=== PATIENT | male | born 1935 | race Caucasian/White ===

== ENCOUNTER 2017-03-10 21:43 | Inpatient (IN) | payer MEDICARE, MEDICAID ==
[2017-03-10 21:43] VITALS: BMI 25.7
--- NOTE | 2017-03-10 22:00 | ED PDOC ---
Arrival/HPI - General Time Seen by Provider: 03/10/17 21:47 Historian: Skilled Nursing - History of Present Illness Narrative History of Present Illness (Text): 03/10/17 21:59 Erickson Lind is an 81 year old male, whose past medical history includes hypertensino, dementia, DVT, GI bleed, anemia, and anxiety, who presents to the Emergency department sent from half-way for evaluation right foot/heel discoloration recently, r/o DVT. Patient noted to be febrile on arrival to Emergency department. Limited HPI and ROS secondary to patient's dementia. Symptom Onset: Gradual Symptom Course: Unchanged Activities at Onset: Light Context: Home ([facility]) Past Medical History - Provider Review Nursing Documentation Reviewed: Yes - Past History Past History: No Previous - Infectious Disease Hx of Infectious Diseases: None - Tetanus Immunization Tetanus Immunization: Unknown - Cardiac Hx Hypertension: Yes - Pulmonary Hx Tuberculosis: No - Neurological Hx Seizures: No - Hematological/Oncological Hx Cancer: No - Gastrointestinal Hx Gastroesophageal Reflux: Yes - Genitourinary/Gynecological Hx Sexually Transmitted Diseases: No - Psychiatric Hx Depression: No Hx Substance Use: No - Past Surgical History Past Surgical History: No Previous - Anesthesia Hx Anesthesia: Yes Hx Anesthesia Reactions: No Hx Malignant Hyperthermia: No - Suicidal Assessment Feels Threatened In Home Enviroment: No Family/Social History - Physician Review Nursing Documentation Reviewed: Yes Family/Social History: Unknown Family HX Hx Alcohol Use: No Hx Substance Use: No Hx Substance Use Treatment: No Allergies/Home Meds Allergies/Adverse Reactions: Allergies No Known Allergies Allergy (Verified 01/30/13 19:34) Home Medications: Home Meds Medication Instructions Recorded Confirmed Acetaminophen [Tylenol 325mg tab] 650 mg PO Q4H PRN 03/10/17 03/10/17 Acetaminophen [Tylenol 325mg tab] 650 mg PO Q4H PRN 03/10/17 03/10/17 Ascorbic Acid [Vitamin C] 500 mg PO DAILY 03/10/17 03/10/17 Cholecalciferol (Vitamin D3) 50,000 unit PO QWK 03/10/17 03/10/17 [Vitamin D3] Divalproex [Depakote Sprinkles] 125 mg PO DAILY 03/10/17 03/10/17 Famotidine [Pepcid] 20 mg PO BID 01/12/18 01/12/18 Furosemide [Lasix] 20 mg PO DAILY 03/10/17 03/10/17 Magnesium Hydroxide [Milk Of 30 ml PO HS PRN 03/10/17 03/10/17 Magnesia] Review of Systems - Review of Systems Systems not reviewed;Unavailable: Dementia Musculoskeletal: Other (+right foot discoloration) Physical Exam Vital Signs Reviewed: Yes Vital Signs Temp Pulse Resp BP Pulse Ox 03/11/17 01:19 98.9 F 85 22 122/75 03/11/17 01:00 87 20 111/64 96 03/11/17 00:51 81 20 110/65 97 03/10/17 23:47 99.0 F 79 20 131/74 96 03/10/17 23:31 99.0 F 03/10/17 23:15 82 20 138/84 94 L 03/10/17 23:07 77 20 128/70 94 L 03/10/17 22:52 81 20 129/71 95 03/10/17 22:37 87 20 126/73 91 L 03/10/17 22:31 101.2 F H 03/10/17 22:22 90 20 128/55 L 95 03/10/17 22:00 89 L 03/10/17 21:57 101.2 F H 93 H 26 H 128/71 84 L Temperature: Febrile Blood Pressure: Normal Pulse: Regular Respiratory Rate: Normal Appearance: Positive for: Non-Toxic Pain Distress: None Mental Status: Positive for: other (Awake, non-communicative) - Systems Exam Head: Present: Atraumatic, Normocephalic Pupils: Present: PERRL Extroacular Muscles: Present: EOMI Conjunctiva: Present: Normal Mouth: Present: Moist Mucous Membranes Neck: Present: Normal Range of Motion. No: Meningeal Signs, MIDLINE TENDERNESS , Paraspinal Tenderness Respiratory/Chest: Present: Clear to Auscultation, Good Air Exchange. No: Respiratory Distress, Accessory Muscle Use Cardiovascular: Present: Regular Rate and Rhythm, Normal S1, S2. No: Murmurs Abdomen: Present: Normal Bowel Sounds. No: Tenderness, Distention, Peritoneal Signs Upper Extremity: Present: NORMAL PULSES, Neurovascularly Intact, Capillary Refill < 2s. No: Cyanosis, Edema, Normal ROM (Contractures of bilateral upper extremities), Tenderness, Swelling, Erythema Lower Extremity: Present: Other (Few scattered area of discoloration to right foot/heel). No: Edema, NORMAL PULSES (Decreased DP/PT pulses), Normal ROM ( Contractures of bilateral lower extremities), Tenderness, Swelling, Erythema Neurological: Present: CN II-XII Intact, Normal Sensory Function, Other (Awake, but non-communicative) Skin: Present: Warm, Dry, Normal Color. No: Rashes Medical Decision Making ED Course and Treatment: 03/10/17 21:59 Impression: 81 year old male sent from half-way for right foot discoloration. Plan: -- EKG -- Chest X-ray -- US Duplex Lower Extremities -- Labs, VBG, cardiac enzymes, blood cultures -- Urinalysis, urine cultures -- IV fluids, lactated ringer's -- Tylenol -- Reassess and disposition Progress Notes: Reviewed EKG, NSR at [address]-segment elevations or depressions, no T-wave inversions, normal intervals. 03/10/17 22:27 Chest X-ray reviewed, shows right lung infiltrate. 03/10/17 22:31 Labs noted, lactate: 2.5, pr febrile. Code Sepsis called. 03/10/17 23:[address] Davidson, who is aware and agrees with plan. Accepts pt in to his service. Pt will be admitted to Telemetry for hypernatremia, dehydration, pneumonia, and peripheral vascular disease. Requests Dr. Lewis and Dr. Garcia on consult. 03/11/17 02:29 US Lower Extremity showed questionable left partial DVT, right lower extremity negative for DVT. - Critical Care Critical Care Minutes: 30 minutes - Lab Interpretations Lab Results: 03/10/17 22:05 03/10/17 22:05 Lab Results 03/10/17 22:11: POC Glucose (mg/dL) 211 H 03/10/17 22:05: Sodium 171 H* D, Chloride 128 H, Potassium 3.8, Carbon Dioxide 30, Anion Gap 17, BUN 68 H, Creatinine 1.5, Est GFR ( Amer) 54, Est GFR ( Non-Af Amer) 45, Random Glucose 258 H, Calcium 9.8, Phosphorus 3.9, Magnesium 3.4 H, Total Bilirubin 0.6, AST 54, ALT 37, Alkaline Phosphatase 93, Lactate Dehydrogenase 847 H, Total Creatine Kinase 452 H, CK-MB (CK-2) 1.1, CK-MB (CK-2 ) % Cancelled, Troponin I 0.04 D, Total Protein 8.4 H, Albumin 3.3, Globulin 5.1, Albumin/Globulin Ratio 0.6 L 03/10/17 22:05: pO2 79 H, VBG pH 7.47 H, VBG pCO2 44.0, VBG HCO3 32.0 H, VBG Total CO2 33.4 H, VBG O2 Sat (Calc) 97.8 H, VBG Base Excess 7.4 H, VBG Potassium 3.9, Sodium 169.0 H*, Chloride 130.0 H, Glucose 257 H, Lactate 2.5 H, FiO2 21.0, Venous Blood Potassium 3.9 03/10/17 22:05: PT 18.3 H, INR 1.59 H, APTT 36.7 H 03/10/17 22:05: WBC 11.3 H, RBC 4.57, Hgb 13.7 L, Hct 44.3, MCV 96.9, MCH 30.0, MCHC 30.9 L, RDW 16.4 H, Plt Count 305, MPV 12.1 H, Gran % 83.7 H, Lymph % (Auto ) 14.6 L, [place] % (Auto) 1.5, Eos % (Auto) 0.0 L, Baso % (Auto) 0.2, Gran # 9.43 H, Lymph # 1.6, [place] # 0.2, Eos # 0.0, Baso # 0.02 I have reviewed the lab results: Yes - RAD Interpretation Radiology Orders: 03/10/17 22:07 CHEST PORTABLE [RAD] Stat 03/10/17 22:11 DUPLEX LOWER EXTRM VEIN BILAT [US] Stat 03/10/17 22:13 ANKLE/BRACHIAL INDICE [US] Stat Trials Manager: ED Physician - EKG Interpretation Interpreted by ED Physician: Yes Type: 12 lead EKG - Medication Orders Current Medication Orders: Collagenase (Santyl) 0 gm TOP DAILY ARIEL Stop: 03/17/17 23:00 Divalproex Sodium (Depakote Sprinkles) 125 mg PO DAILY ARIEL PRN Reason: Protocol Last Admin: 03/11/17 10:05 Dose: Not Given Non-Admin Reason: NPO Dextrose (Dextrose 5% In Water 1000 Ml) 1,000 mls @ 100 mls/hr IV .Q10H ARIEL Last Admin: 03/11/17 10:12 Dose: 100 mls/hr eMAR Start Stop Document 03/11/17 10:12 DEL (Rec: 03/11/17 10:12 [facility] [id number]) Intravenous Solution Start Date 03/11/17 Start Time 10:12 Ceftaroline Fosamil 400 mg/ (Sodium Chloride) 100 mls @ 100 mls/hr IVPB Q12 ARIEL PRN Reason: Protocol Stop: 03/20/17 12:31 Last Admin: 03/11/17 14:08 Dose: 100 mls/hr eMAR Start Stop Document 03/11/17 14:08 DEL (Rec: 03/11/17 14:09 [id number] Intravenous Solution Start Date 03/11/17 Start Time 14:08 End Date 03/11/17 End time 15:00 Total Infusion Time 52 Insulin Human Regular (Humulin R High) 0 units SC ACHS ARIEL PRN Reason: Protocol Last Admin: 03/11/17 17:18 Dose: Not Given Non-Admin Reason: Blood Sugar Parameter [facility] Blood Glucose Document 03/11/17 17:18 DEL (Rec: 03/11/17 17:18 [facility] [id number]) Blood Glucose Finger Stick Blood Glucose (70-120) 130 Discontinued Medications Acetaminophen (Tylenol 650 Mg Supp) 650 mg RC STAT STA Stop: 03/10/17 22:14 Last Admin: 03/10/17 22:31 Dose: 650 mg MAR Pain/Vitals Document 03/10/17 22:31 JOL (Rec: 03/10/17 22:31 JOL [id number]) Vitals Temperature (97.6 F-99.6 F) 101.2 F Temperature Source Rectal Re-Assess: MAR Pain/Vitals Document 03/10/17 23:31 JOL (Rec: 03/11/17 00:49 JOL [id number]) Vitals Temperature (97.6 F-99.6 F) 99.0 F Temperature Source Rectal Sodium Chloride (Sodium Chloride 0.9%) 1,000 mls @ 999 mls/hr IV .Q1H1M STA Stop: 03/10/17 23:12 Last Admin: 03/10/17 22:31 Dose: 999 mls/hr eMAR Start Stop Document 03/10/17 22:31 JOL (Rec: 03/10/17 22:31 JOL [id number]) Intravenous Solution Start Date 03/10/17 Start Time 22:31 End Date 03/10/17 End time 23:32 Total Infusion Time 61 Levofloxacin/Dextrose (Levaquin 750mg) 750 mg in 150 mls @ 100 mls/hr IVPB STAT STA PRN Reason: Protocol Stop: 03/11/17 00:01 Last Admin: 03/11/17 00:00 Dose: 100 mls/hr eMAR Start Stop Document 03/11/17 00:00 JOL (Rec: 03/11/17 00:00 JOL [id number]) Intravenous Solution Start Date 03/11/17 Start Time 00:00 End Date 03/11/17 End time 01:30 Total Infusion Time 90 Cefepime HCl (Maxipime 2gm) 2 gm in 100 mls @ 100 mls/hr IVPB STAT STA PRN Reason: Protocol Stop: 03/10/17 23:31 Last Admin: 03/10/17 23:01 Dose: 100 mls/hr eMAR Start Stop Document 03/10/17 23:01 JOL (Rec: 03/10/17 23:02 JOL [id number]) Intravenous Solution Start Date 03/10/17 Start Time 23:01 End Date 03/11/17 End time 00:01 Total Infusion Time 60 Cefepime HCl (Maxipime 1gm) 1 gm in 100 mls @ 100 mls/hr IVPB Q12 ARIEL PRN Reason: Protocol Last Admin: 03/11/17 10:08 Dose: 100 mls/hr eMAR Start Stop Document 03/11/17 10:08 DEL (Rec: 03/11/17 10:08 DEL [id number]) Intravenous Solution Start Date 03/11/17 Start Time 10:08 End Date 03/11/17 End time 11:10 Total Infusion Time 62 - Scribe Statement The provider has reviewed the documentation as recorded by the Pazibcecilia Travis All medical record entries made by the Scribe were at my direction and personally dictated by me. I have reviewed the chart and agree that the record accurately reflects my personal performance of the history, physical exam, medical decision making, and the department course for this patient. I have also personally directed, reviewed, and agree with the discharge instructions and disposition. Disposition/Present on Arrival - Present on Arrival Any Indicators Present on Arrival: No History of DVT/PE: No History of Uncontrolled Diabetes: No Urinary Catheter: No History Surgical Site Infection Following: None - Disposition Have Diagnosis and Disposition been Completed?: Yes Diagnosis: Dehydration with hypernatremia, Pneumonia, Sepsis Disposition: HOSPITALIZED Disposition Time: 23:24 Patient Problems: Current Active Problems Problem Status Onset Dehydration with hypernatremia Acute Pneumonia Acute Sepsis Acute Condition: STABLE
[2017-03-10] MEDS ORDERED: Sodium Chloride 0.9% 1,000 ML IV STA (22:12)
[2017-03-10 22:24] LABS: VENOUS BLOOD GAS BASE EXCESS 7.4 mmol/L (0.0-2.0); VENOUS BLOOD GAS PO2 79 mm/Hg (30-55); VENOUS BLOOD PH 7.47 (7.32-7.43)
[2017-03-10] MEDS ORDERED: levoFLOXacin 750 mg in D5W 750 MG/150 ML BAG IVPB STA (22:32)
[2017-03-10] MEDS ORDERED: Cefepime IV 2 gm in NS 2 GM/100 ML BAG IVPB STA (22:32)
[2017-03-10] MEDS ORDERED: Sodium Chloride 0.9% 500 ML IV STA (22:39)
[2017-03-10 22:41] LABS: BASO # 0.02 K/mm3 (0.0-2.0); BASO % 0.2 % (0.0-3.0); GRAN # 9.43 (1.4-6.5); GRAN % 83.7 % (50.0-68.0); HEMOGLOBIN 13.7 g/dL (14.0-18.0); LYMPH # 1.6 (1.2-3.4); LYMPH % 14.6 % (22.0-35.0); MEAN CELL VOLUME 96.9 fl (80.0-105.0); MEAN CORPUSCULAR HGB CONC 30.9 g/dl (31.0-37.0); MEAN PLATELET VOLUME 12.1 fl (7.0-11.0); MONO # 0.2 (0.1-0.6); MONO % 1.5 % (1.0-6.0); RBC 4.57 10^6/uL (3.5-6.1); RED CELL DISTRIBUTION WIDTH 16.4 % (11.5-14.5); TROPONIN I 0.04 ng/mL; WHITE BLOOD COUNT 11.3 10^3/ul (4.5-11.0)
[2017-03-10 22:44] LABS: ALB/GLOB RATIO 0.6 (1.1-1.8); ALBUMIN 3.3 g/dL (3.0-4.8); CALCIUM 9.8 mg/dL (8.4-10.5); MAGNESIUM 3.4 mg/dL (1.7-2.2)
[2017-03-10 22:46] LABS: CK-MB 1.1 ng/mL (0.0-3.6)
[2017-03-10 22:50] LABS: INR 1.59 (0.93-1.08); PARTIAL THROMBOPLASTIN TIME 36.7 Seconds (25.1-36.5); PROTHROMBIN TIME 18.3 SECONDS (9.4-12.5)
[2017-03-11 01:14] LABS: VENOUS BLOOD GAS BASE EXCESS 4.3 mmol/L (0.0-2.0); VENOUS BLOOD GAS PO2 165 mm/Hg (30-55); VENOUS BLOOD PH 7.52 (7.32-7.43)
[2017-03-11] MEDS ORDERED: Enoxaparin 60 mg Syringe SC STA (02:34)
--- NOTE | 2017-03-11 02:44 | PCM.SEPTIC ---
Sepsis Progress Note - Reassessment Type Date of Evaluation: 03/11/17 Time of Evaluation: 02:28 Reassessment Type: Non-invasive reassessment - Non Invasive Reassessment Were the most recent vital sign reviewed: Yes Vital Sign (Latest): Temp Pulse Resp BP Pulse Ox 98.9 F 85 22 122/75 94 L 03/11/17 02:00 03/11/17 02:00 03/11/17 02:00 03/11/17 02:00 03/11/17 02:00 Cardiovascular: Yes: Regular Rate, Rhythm. No: Bradycardia, Tachycardia, Irregularly Irregular Respiratory: Yes: Decreased Breath Sounds (diffusely), Other (tachypnic to 22, getting breathing treatment at time of exam). No: Crackles, Rales, Rhonchi, Wheezing Capillary Refill: Normal (Less than 2 sec) Pulses: Normal Radial, Decreased Dorsalis Pedis, Absent Posterior Tibialis Skin: Normal Color, Warm, Dry
[2017-03-11] MEDS: Insulin Reg-HIGH-Coverage SC SCH ×3 (08:36→17:18)
--- NOTE | 2017-03-11 08:43 | RAD ---
HISTORY: Sepsis Patient COMPARISON: 02/20/2013 FINDINGS: LUNGS: There is a small infiltrate at the right lung base which may represent atelectasis or pneumonia. PLEURA: No significant pleural effusion identified, no pneumothorax apparent. CARDIOVASCULAR: Normal. OSSEOUS STRUCTURES: No significant abnormalities. VISUALIZED UPPER ABDOMEN: Normal. OTHER FINDINGS: None. IMPRESSION: There is a small infiltrate at the right lung base which may represent atelectasis or pneumonia.
[2017-03-11] MEDS ORDERED: Cefepime 1gm in NS 100ml 1 GM/100 ML BAG IVPB SCH (10:00)
[2017-03-11] MEDS: Divalproex 125 mg EC Sprinkle Cap PO SCH (10:05)
--- NOTE | 2017-03-11 11:10 | HP ---
HISTORY OF PRESENT ILLNESS: I was called by [facility] that he has got some vascular changes in his foot and he is not as alert mentally and they sent him to the Emergency Room at [facility]. He is an 81-year-old man who is bedridden. PAST MEDICAL HISTORY: Includes hypertension, dementia, old DVT, GI bleed, anemia, anxiety. He has a right foot heel discoloration. He is also having a fever. He has history of dementia and he is sent to the emergency room. He has reflux. FAMILY HISTORY: Unknown family history. SOCIAL HISTORY: No alcohol. No drugs. No smoking. ALLERGIES: NO KNOWN DRUG ALLERGIES. MEDICATIONS: He takes Tylenol, vitamin C, vitamin D, Depakote, Pepcid, Lasix, milk of magnesia. REVIEW OF SYSTEMS: Cannot do review of systems. PHYSICAL EXAMINATION GENERAL: He is nonverbal, demented. His eyes are open, I am not sure if he is toxic. He is awake, but not communicative. VITAL SIGNS: He has 101.2 temp, 93 pulse, 26 respiratory rate, 120/71 blood pressure, 84 which came up to 96% O2 sat. HEENT: Normocephalic, atraumatic. Extraocular muscles are intact. Throat is dry. NECK: Supple. HEART: Regular rate, normal S1 and S2. LUNGS: Decreased breath sounds. Poor inspiration but fairly clear. ABDOMEN: Soft and nontender. Positive bowel sounds. No apparent guarding. EXTREMITIES: His extremities are contracted, upper and lower extremities bilaterally. No apparent edema. He has discoloration of the right foot and heel, it is kind of reddened. NEUROLOGIC: His eyes are open. SKIN: Warm and dry. There is still right foot heel issue. Multiple tests are ordered from ER doctors ankle-brachial index, ultrasound, chest x-ray that are pending. LABORATORY DATA: He has a 11.3 white count, 13.7 hemoglobin, 44.3 hematocrit with a 305 platelets. His INR is 1.59, not on Coumadin. Lactate was 2.5. He has 171 sodium, potassium 3.8, BUN 68, creatinine 1.5, sugars are 211, calcium is 9.8, phosphorus 3.9, magnesium 3.4, AST is 54, ALT is 37, alkaline phosphatase 93, lactate dehydrogenase is 847. Troponin is 0.04. Total protein is 8.4. PLAN: He is to have multiple consults. We are going to have Vascular, Infectious Disease, Podiatry, Renal, IV fluids, IV antibiotics. We are going to watch him very closely. Gerry Davidson DO
[2017-03-11 13:07] LABS: BLOOD UREA NITROGEN 60 mg/dL (7-21); CALCIUM 8.8 mg/dL (8.4-10.5); GFR AFRICAN-AMERICAN > 60; GFR NON-AFRICAN AMERICAN 58
--- NOTE | 2017-03-11 13:20 | RAD ---
PROCEDURE: Right Foot Radiographs. HISTORY: right heel ulcer COMPARISON: None. FINDINGS: BONES: Normal. No fracture. JOINTS: Normal. SOFT TISSUES: Normal. OTHER FINDINGS: None. IMPRESSION: Normal right foot radiographs.
--- NOTE | 2017-03-11 15:35 | CARD ---
APPROVED REPORT EXAM: Two-dimensional and M-mode echocardiogram with Doppler and color Doppler. INDICATION r/o Endocarditis <Conclusion> 2 subcostal views with a very limited window Overall systolic function is preserved Impossible to evaluate for the presence of a vegitation
--- NOTE | 2017-03-11 15:40 | CARD ---
APPROVED REPORT EKG Measurement Heart [id number] <Conclusion> Normal sinus rhythm Normal ECG
[2017-03-11 20:07] LABS: PH,URINE 5.5 (4.7-8.0); URINE BILIRUBIN NEGATIVE (NEGATIVE); URINE BLOOD SMALL (NEGATIVE); URINE GLUCOSE (UA) NEGATIVE (NEGATIVE); URINE LEUKOCYTE ESTERASE NEGATIVE Leu/uL (NEGATIVE); URINE NITRATE NEGATIVE (NEGATIVE); URINE PROTEIN 100 mg/dL (<30 mg/dL); URINE UROBILINOGEN 0.2 E.U./dL (<1 E.U./dL)
[2017-03-11 20:14] LABS: URINE APPEARANCE CLOUDY (CLEAR); URINE COLOR YELLOW (YELLOW)
[2017-03-11 20:23] LABS: URINE BACTERIA FEW (NEG); URINE WBC 0 - 2 /hpf (0-6)
[2017-03-11 20:50] LABS: CREATININE,RANDOM URINE 126 mg/dL
--- NOTE | 2017-03-11 22:23 | CP.PCM.CON ---
History of Present Illness - History of Present Illness History of Present Illness: renal consult note 81 years old with past medical history includes hypertension, dementia, DVT, GI bleed, anemia, and anxiety, is admitted with foot discoloration, AMS and fever. i have been consulted for hypernatremia. patient unable to provide any hx Review of Systems - Review of Systems Systems not reviewed;Unavailable: Dementia, Altered Mental Status Past Patient History - Infectious Disease Hx of Infectious Diseases: None - Tetanus Immunizations Tetanus Immunization: Unknown - Past Social History Smoking Status: Unknown If Ever Smoked - CARDIAC Hx Hypertension: Yes - PULMONARY Hx Tuberculosis: No - NEUROLOGICAL Hx Seizures: No - HEMATOLOGICAL/ONCOLOGICAL Hx Cancer: No - MUSCULOSKELETAL/RHEUMATOLOGICAL Hx Musculoskeletal Disorders: Yes Hx Degenerative Joint Disease: Yes Hx Falls: (unknown) - GASTROINTESTINAL Hx Gastroesophageal Reflux: Yes - GENITOURINARY/GYNECOLOGICAL Hx Sexually Transmitted Disorders: No - PSYCHIATRIC Hx Depression: No Hx Substance Use: No - ANESTHESIA Hx Anesthesia: Yes Hx Anesthesia Reactions: No Hx Malignant Hyperthermia: No Meds Allergies/Adverse Reactions: Allergies Allergy/AdvReac Type Severity Reaction Status Date / Time No Known Allergies Allergy Verified 01/30/13 19:34 - Medications Medications: Current Medications Collagenase (Santyl) 0 gm TOP DAILY ARIEL Stop: 03/17/17 23:00 Divalproex Sodium (Depakote Sprinkles) 125 mg PO DAILY ARIEL PRN Reason: Protocol Last Admin: 03/11/17 10:05 Dose: Not Given Dextrose (Dextrose 5% In Water 1000 Ml) 1,000 mls @ 100 mls/hr IV .Q10H [facility] Last Admin: 03/11/17 10:12 Dose: 100 mls/hr Ceftaroline Fosamil 400 mg/ (Sodium Chloride) 100 mls @ 100 mls/hr IVPB Q12 ARIEL PRN Reason: Protocol Stop: 03/20/17 12:31 Last Admin: 03/11/17 14:08 Dose: 100 mls/hr Insulin Human Regular (Humulin R High) 0 units SC ACHS ARIEL PRN Reason: Protocol Last Admin: 03/11/17 17:18 Dose: Not Given Physical Exam - Constitutional Appears: Non-toxic, Confused - Head Exam Head Exam: NORMAL INSPECTION - Eye Exam Eye Exam: Normal appearance - ENT Exam ENT Exam: Mucous Membranes Dry - Respiratory Exam Respiratory Exam: NORMAL BREATHING PATTERN - Cardiovascular Exam Cardiovascular Exam: +S1, +S2 - GI/Abdominal Exam GI & Abdominal Exam: Soft - Extremities Exam Extremities exam: Positive for: normal inspection - Neurological Exam Additional comments: AO times 0 - Skin Skin Exam: Dry Results - Vital Signs Recent Vital Signs: Last Vital Signs Temp 97.6 F 03/11/17 17:52 Pulse 76 03/11/17 18:00 Resp 21 03/11/17 17:52 BP 125/77 03/11/17 17:52 Pulse Ox 96 03/11/17 17:52 - Labs Result Diagrams: 03/10/17 22:05 03/11/17 12:44 Labs: Laboratory Results - last 24 hr 03/11/17 03/11/17 03/11/17 01:05 08:25 11:50 ESR pO2 165 H VBG pH 7.52 H VBG pCO2 33.0 L VBG HCO3 26.9 VBG Total CO2 27.9 VBG O2 Sat (Calc) 99.9 H VBG Base Excess 4.3 H VBG Potassium 4.5 Sodium 167.0 H* Chloride 131.0 H Glucose 223 H Lactate 2.2 H FiO2 21.0 Potassium Carbon Dioxide Anion Gap BUN Creatinine Est GFR ( Amer) Est GFR (Non-Af Amer) POC Glucose (mg/dL) 194 H 174 H Random Glucose Calcium C-React Prot High Sens Procalcitonin Venous Blood Potassium 4.5 Urine Color Urine Appearance Urine pH Ur Specific [place] Urine Protein Urine Glucose (UA) Urine Ketones Urine Blood Urine Nitrate Urine Bilirubin Urine Urobilinogen Ur Leukocyte Esterase Urine RBC Urine WBC Ur Epithelial Cells Urine Bacteria Ur Random Creatinine Ur Random Sodium 03/11/17 03/11/17 03/11/17 12:44 13:50 13:50 ESR pO2 VBG pH VBG pCO2 VBG HCO3 VBG Total CO2 VBG O2 Sat (Calc) VBG Base Excess VBG Potassium Sodium 166 H* Chloride 128 H Glucose Lactate FiO2 Potassium 3.7 Carbon Dioxide 28 Anion Gap 13 BUN 60 H Creatinine 1.2 Est GFR ( Amer) > 60 Est GFR (Non-Af Amer) 58 POC Glucose (mg/dL) Random Glucose 208 H Calcium 8.8 C-React Prot High Sens > 15.00 H Procalcitonin 1.13 H Venous Blood Potassium Urine Color Urine Appearance Urine pH Ur Specific [place] Urine Protein Urine Glucose (UA) Urine Ketones Urine Blood Urine Nitrate Urine Bilirubin Urine Urobilinogen Ur Leukocyte Esterase Urine RBC Urine WBC Ur Epithelial Cells Urine Bacteria Ur Random Creatinine Ur Random Sodium 03/11/17 03/11/17 03/11/17 13:50 16:40 19:00 ESR 121 H pO2 VBG pH VBG pCO2 VBG HCO3 VBG Total CO2 VBG O2 Sat (Calc) VBG Base Excess VBG Potassium Sodium Chloride Glucose Lactate FiO2 Potassium Carbon Dioxide Anion Gap BUN Creatinine Est GFR ( Amer) Est GFR (Non-Af Amer) POC Glucose (mg/dL) 130 H Random Glucose Calcium C-React Prot High Sens Procalcitonin Venous Blood Potassium Urine Color Yellow Urine Appearance Cloudy Urine pH 5.5 Ur Specific [place] >= 1.030 Urine Protein 100 H Urine Glucose (UA) Negative Urine Ketones Negative Urine Blood Small H Urine Nitrate Negative Urine Bilirubin Negative Urine Urobilinogen 0.2 Ur Leukocyte Esterase Negative Urine RBC 1 - 3 Urine WBC 0 - 2 Ur Epithelial Cells 1 - 3 Urine Bacteria Few Ur Random Creatinine Ur Random Sodium 03/11/17 03/11/17 19:00 21:30 ESR pO2 VBG pH VBG pCO2 VBG HCO3 VBG Total CO2 VBG O2 Sat (Calc) VBG Base Excess VBG Potassium Sodium Chloride Glucose Lactate FiO2 Potassium Carbon Dioxide Anion Gap BUN Creatinine Est GFR ( Amer) Est GFR (Non-Af Amer) POC Glucose (mg/dL) 177 H Random Glucose Calcium C-React Prot High Sens Procalcitonin Venous Blood Potassium Urine Color Urine Appearance Urine pH Ur Specific [place] Urine Protein Urine Glucose (UA) Urine Ketones Urine Blood Urine Nitrate Urine Bilirubin Urine Urobilinogen Ur Leukocyte Esterase Urine RBC Urine WBC Ur Epithelial Cells Urine Bacteria Ur Random Creatinine 126 Ur Random Sodium 15 Assessment & Plan - Assessment and Plan (Free Text) Plan: hypernatremia/dehydration/dementia/htn hypernatremia sec to oral intake, decreased free water intake continue d5 water @ current rate i ordered another bmp to be checked in afternoon, which showed sodium of 166 montior UOP d/w bedside nurse
--- NOTE | 2017-03-12 00:18 | CON ---
DATE: 03/11/2017 The patient seen earlier today in 372, bed 1. CHIEF COMPLAINT: Weakness times several days. HISTORY OF PRESENT ILLNESS: This is an 81-year-old male, correction patient, who is bedridden with a history of dementia, DVT, GI bleed, anxiety, contracted pes equinus who was admitted with a right foot erythema. The patient is a poor historian. Information is gathered from the nurse. The patient did have a fever as reported. No chills have been reported. There is very mild shortness of breath. No abdominal pain or diarrhea. PAST MEDICAL HISTORY: Significant for dementia, DVT, GI bleed, anxiety, hypertension, and Alzheimer's. PAST SURGICAL HISTORY: Noncontributory. MEDICATIONS AT RETIREMENT: Include magnesium, Tylenol, vitamins, furosemide, ascorbic acid, famotidine, divalproex which is Depakote. PHYSICAL EXAMINATION: GENERAL: The patient is in bed, in no acute distress. VITAL SIGNS: Temperature of 101.2, heart rate of 98, respiratory rate 22, blood pressure is 120/70, oxygen saturation is 94%. It was down to 84% in the emergency room. HEENT: Unremarkable. NECK: Supple. LUNGS: Have decreased breath sounds. HEART: Normal S1, S2. ABDOMEN: Soft, nontender. EXTREMITIES: On examination of the right foot, there is erythema and edema of the foot. Laboratory examination reveals a white count of 11,000, hemoglobin of 13, platelets of 305. Sodium is 171, BUN of 68, creatinine of 1.5 with a GFR of 45. LDH is elevated. CPK is elevated. ASSESSMENT/PLAN: An 81-year-old male with dementia, deep venous thrombosis, gastrointestinal bleed, anxiety, hypertension, bedridden, contracted with severe sepsis secondary to severe right foot cellulitis with gangrenous changes with acute kidney injury. Creatinine on last admission on 10/30/2013 was 0.7. Yesterday, the patient's creatinine was 1.5. Blood cultures have been sent. Dr. Lewis is on consult. The patient was given cefepime. The patient had a chest x-ray. There is a small injury to the right lung base, maybe atelectasis or pneumonia. The patient had EKG. Results are not available. The patient had an ultrasound of lower extremities and ankle brachial indices. Both results are not available. Sepsis progress note by Dr. Gerry Davidson is noted. He will start the patient on Teflaro adjusted for the acute kidney injury, unable to use vancomycin. Must rule out bacteremia and cellulitis and endocarditis. The patient has an elevated CPK and rhabdomyolysis with acute kidney injury. Hesitant to use daptomycin and unable to use Zyvox because of possibility of bacteremia, pending blood cultures, urine cultures, and podiatric input. Also order an echocardiogram to rule out endocarditis with an embolic disease to the right foot. Pending blood cultures and also order a sed rate and a C-reactive protein. We will make further recommendations upon availability of initial results. We will discontinue the cefepime. Todd Garcia MD
--- NOTE | 2017-03-12 00:49 | CON ---
DATE: 03/11/2017 HISTORY OF PRESENT ILLNESS: An 81-year-old intubated male seen at bedside for consultation, evaluation and management of a right heel ulceration and severe discoloration to the right foot. The patient is intubated and is unable to answer any questions. The patient was brought from assisted yesterday. PAST MEDICAL HISTORY: Significant for essential hypertension, peripheral arterial disease, and dementia. PAST SURGICAL HISTORY: Unobtainable. SOCIAL HISTORY: Unknown. There is no evidence of alcohol or substance abuse, and there is no record of tobacco usage. ALLERGIES: THE PATIENT HAS NO KNOWN DRUG ALLERGIES. VITAL SIGNS: Reveal temperature of 99.1, pulse rate of 87, blood pressure of 119/86, respiratory rate of 19. LABORATORY FINDINGS: Reveal white count of 11.3, hemoglobin of 13.7, hematocrit of 44.3, platelet count of 305. ABIs and PVRs were ordered, results are pending. Venous Doppler was taken, results are pending to rule out deep vein thrombosis. No x-rays were ordered. OBJECTIVE: Weakly palpable pedal pulses noted bilaterally. Absent pedal hair growth noted bilaterally. Lower extremity skin thin, shining, discolored bilaterally. Unable to determine if the patient can detect 5.07 g monofilament testing as the patient is nonresponsive. There is a full-thickness ulceration located at the right heel that measures approximately 1.2 cm x 1 cm x 0.2 cm. The base of the ulceration is gangrenous. It appears to have demarcated. There is no purulence. The wound does not probe the tendon or bone. No signs of acute bacterial infection. There are noted to be discolorations from deep tissue injuries on the lateral aspect of the right foot and distal ankle laterally. There are no open lesions noted at these areas. ASSESSMENT: Gangrenous right heel ulceration with deep tissue injuries to the lateral aspect of the right foot. PLAN: The patient's wounds were cleansed with normal sterile saline. We will apply Santyl ointment to the right heel and dress the deep tissue injuries with Xeroform and dry sterile dressing. We will order arterial Dopplers to ascertain lower extremity perfusion. We will order right foot x-rays to rule out osteomyelitis of the right calcaneus. We will await PVR, DU report, as well as venous Dopplers. It is imperative that we continue to offload both heels using a foam Multi-Podus boots and are present at bedside. The patient will be seen and followed daily. Amrit Valencia DPM
[2017-03-12] MEDS: Insulin Reg-HIGH-Coverage SC SCH ×5 (05:55→22:00)
[2017-03-12 07:56] LABS: HEMOGLOBIN 12.2 g/dL (14.0-18.0); MEAN CELL VOLUME 98.6 fl (80.0-105.0); MEAN CORPUSCULAR HEMOGLOBIN 29.5 pg (25.0-35.0); MEAN CORPUSCULAR HGB CONC 29.9 g/dl (31.0-37.0); MEAN PLATELET VOLUME 12.8 fl (7.0-11.0); RBC 4.14 10^6/uL (3.5-6.1); RED CELL DISTRIBUTION WIDTH 16.6 % (11.5-14.5); WHITE BLOOD COUNT 11.5 10^3/ul (4.5-11.0)
[2017-03-12 08:23] LABS: ALB/GLOB RATIO 0.6 (1.1-1.8); ALBUMIN 3.2 g/dL (3.0-4.8); ALT/SGPT 39 U/L (7-56); AST/SGOT 48 U/L (17-59); BLOOD UREA NITROGEN 54 mg/dL (7-21); GFR AFRICAN-AMERICAN > 60; GFR NON-AFRICAN AMERICAN > 60
[2017-03-12] MEDS: Collagenase 250 Units/gm Ointment(30 gm) TOP SCH (09:10)
[2017-03-12] MEDS: Divalproex 125 mg EC Sprinkle Cap PO SCH (09:11)
[2017-03-12] MEDS: Enoxaparin 40 mg Syringe SC SCH (13:31)
--- NOTE | 2017-03-12 17:46 | CP.PCM.PN ---
Subjective - Date & Time of Evaluation Date of Evaluation: 03/12/17 Time of Evaluation: 17:46 - Subjective Subjective: renal follow up note no events overnight PE: lying in bed vitals reviewed s1s2 present coarse bs + abd soft skin dry ao times 0 no edema plan: hypernatremia/dehydration/dementia/htn hypernatremia sec to oral intake, decreased free water intake continue d5 water @ current rate, sodium is slowly improving free water does not cause volume overload, can continue at same rate monitor UOP Objective - Vital Signs/Intake and Output Vital Signs (last 24 hours): Temp Pulse Resp BP Pulse Ox 102.4 F H 92 H 18 129/81 93 L 03/12/17 15:34 03/12/17 06:00 03/12/17 06:00 03/12/17 06:00 03/12/17 06:00 Intake and Output: 03/12/17 03/12/17 06:59 18:59 Intake Total 1200 Balance 1200 - Medications Medications: Current Medications Acetaminophen (Tylenol 650 Mg Supp) 650 mg RC Q4H PRN PRN Reason: Fever >100.4 F Last Admin: 03/12/17 15:34 Dose: 650 mg Collagenase (Santyl) 0 gm TOP DAILY ARIEL Stop: 03/17/17 23:00 Last Admin: 03/12/17 09:10 Dose: 1 apful Divalproex Sodium (Depakote Sprinkles) 125 mg PO DAILY ARIEL PRN Reason: Protocol Last Admin: 03/12/17 09:11 Dose: 125 mg Enoxaparin Sodium (Lovenox) 40 mg SC DAILY ARIEL PRN Reason: Protocol Last Admin: 03/12/17 13:31 Dose: 40 mg Dextrose (Dextrose 5% In Water 1000 Ml) 1,000 mls @ 100 mls/hr IV .Q10H ARIEL Last Admin: 03/12/17 12:35 Dose: Not Given Ceftaroline Fosamil 400 mg/ (Sodium Chloride) 100 mls @ 100 mls/hr IVPB Q12 ARIEL PRN Reason: Protocol Stop: 03/20/17 12:31 Last Admin: 03/12/17 09:10 Dose: 100 mls/hr Insulin Human Regular (Humulin R High) 0 units SC ACHS ARIEL PRN Reason: Protocol Last Admin: 03/12/17 17:12 Dose: 2 units - Labs Labs: 03/12/17 06:30 03/12/17 06:30 PT 18.3 SECONDS (9.4-12.5) H 03/10/17 22:05 INR 1.59 (0.93-1.08) H 03/10/17 22:05 APTT 36.7 Seconds (25.1-36.5) H 03/10/17 22:05
--- NOTE | 2017-03-12 23:21 | CP.PCM.PN ---
Subjective - Date & Time of Evaluation Date of Evaluation: 03/12/17 Time of Evaluation: 23:18 - Subjective Subjective: Patient was seen because nurse states that his pulse ox was low (88%) on 2L/min by nasal canula and she has patient on 100 % non rebreathing mask. Patient has no complaints. Medical record was reviewed. This 81 year old white male was admitted with altered mental state and vascular changes, right lung base infiltrate. Has PMH of HTN,dementia, DVT, anxiety, anemia, GI bleeding, GERD. Objective - Vital Signs/Intake and Output Vital Signs (last 24 hours): Temp Pulse Resp BP Pulse Ox 102.6 F H 94 H 20 134/81 92 L 03/12/17 21:30 03/12/17 18:00 03/12/17 18:00 03/12/17 18:00 03/12/17 18:00 Intake and Output: 03/12/17 03/13/17 18:59 06:59 Intake Total 120 Balance 120 - Medications Medications: Current Medications Acetaminophen (Tylenol 650 Mg Supp) 650 mg RC Q4H PRN PRN Reason: Fever >100.4 F Last Admin: 03/12/17 21:30 Dose: 650 mg Collagenase (Santyl) 0 gm TOP DAILY ARIEL Stop: 03/17/17 23:00 Last Admin: 03/12/17 09:10 Dose: 1 apful Divalproex Sodium (Depakote Sprinkles) 125 mg PO DAILY ARIEL PRN Reason: Protocol Last Admin: 03/12/17 09:11 Dose: 125 mg Enoxaparin Sodium (Lovenox) 40 mg SC DAILY ARIEL PRN Reason: Protocol Last Admin: 03/12/17 13:31 Dose: 40 mg Dextrose (Dextrose 5% In Water 1000 Ml) 1,000 mls @ 100 mls/hr IV .Q10H ARIEL Last Admin: 03/12/17 19:02 Dose: Not Given Ceftaroline Fosamil 400 mg/ (Sodium Chloride) 100 mls @ 100 mls/hr IVPB Q12 ARIEL PRN Reason: Protocol Stop: 03/20/17 12:31 Last Admin: 03/12/17 21:30 Dose: 100 mls/hr Insulin Human Regular (Humulin R High) 0 units SC ACHS ARIEL PRN Reason: Protocol Last Admin: 03/12/17 17:12 Dose: 2 units - Labs Labs: 03/12/17 06:30 03/12/17 06:30 PT 18.3 SECONDS (9.4-12.5) H 03/10/17 22:05 INR 1.59 (0.93-1.08) H 03/10/17 22:05 APTT 36.7 Seconds (25.1-36.5) H 03/10/17 22:05 Micro Results 03/10/17 22:35 Blood Blood Culture - Preliminary NO GROWTH AFTER 48 HOURS 03/10/17 22:05 Blood Blood Culture - Preliminary NO GROWTH AFTER 48 HOURS Most Recent Lab Values WBC 11.5 10^3/ul (4.5-11.0) H 03/12/17 06:30 RBC 4.14 10^6/uL (3.5-6.1) 03/12/17 06:30 Hgb 12.2 g/dL (14.0-18.0) L 03/12/17 06:30 Hct 40.8 % (42.0-52.0) L 03/12/17 06:30 MCV 98.6 fl (80.0-105.0) 03/12/17 06:30 MCH 29.5 pg (25.0-35.0) 03/12/17 06:30 MCHC 29.9 g/dl (31.0-37.0) L 03/12/17 06:30 RDW 16.6 % (11.5-14.5) H 03/12/17 06:30 Plt Count 293 10^3/uL (120.0-450.0) 03/12/17 06:30 MPV 12.8 fl (7.0-11.0) H 03/12/17 06:30 Gran % 83.7 % (50.0-68.0) H 03/10/17 22:05 Lymph % (Auto) 14.6 % (22.0-35.0) L 03/10/17 22:05 [place] % (Auto) 1.5 % (1.0-6.0) 03/10/17 22:05 Eos % (Auto) 0.0 % (1.5-5.0) L 03/10/17 22:05 Baso % (Auto) 0.2 % (0.0-3.0) 03/10/17 22:05 Gran # 9.43 (1.4-6.5) H 03/10/17 22:05 Lymph # 1.6 (1.2-3.4) 03/10/17 22:05 [place] # 0.2 (0.1-0.6) 03/10/17 22:05 Eos # 0.0 (0.0-0.7) 03/10/17 22:05 Baso # 0.02 K/mm3 (0.0-2.0) 03/10/17 22:05 ESR 121 mm/hr (0.00-15.0) H 03/11/17 13:50 PT 18.3 SECONDS (9.4-12.5) H 03/10/17 22:05 INR 1.59 (0.93-1.08) H 03/10/17 22:05 APTT 36.7 Seconds (25.1-36.5) H 03/10/17 22:05 pO2 165 mm/Hg (30-55) H 03/11/17 01:05 VBG pH 7.52 (7.32-7.43) H 03/11/17 01:05 VBG pCO2 33.0 (40-60) L 03/11/17 01:05 VBG HCO3 26.9 mmol/l (21-28) 03/11/17 01:05 VBG Total CO2 27.9 mmol.L (22-28) 03/11/17 01:05 VBG O2 Sat (Calc) 99.9 % (40-65) H 03/11/17 01:05 VBG Base Excess 4.3 mmol/L (0.0-2.0) H 03/11/17 01:05 VBG Potassium 4.5 mmol/L (3.6-5.2) 03/11/17 01:05 Sodium 167.0 mmol/L (132-148) H* 03/11/17 01:05 Chloride 131.0 mmol/L (98-107) H 03/11/17 01:05 Glucose 223 mg/dl (75-110) H 03/11/17 01:05 Lactate 2.2 mmol/L (0.7-2.1) H 03/11/17 01:05 FiO2 21.0 % 03/11/17 01:05 Sodium 165 mmol/L (132-148) H* 03/12/17 06:30 Potassium 3.8 mmol/L (3.6-5.0) 03/12/17 06:30 Chloride 127 mmol/L (98-107) H 03/12/17 06:30 Carbon Dioxide 27 mmol/L (21-33) 03/12/17 06:30 Anion Gap 15 (10-20) 03/12/17 06:30 BUN 54 mg/dL (7-21) H 03/12/17 06:30 Creatinine 1.1 mg/dl (0.8-1.5) 03/12/17 06:30 Est GFR ( Amer) > 60 03/12/17 06:30 Est GFR (Non-Af Amer) > 60 03/12/17 06:30 POC Glucose (mg/dL) 119 mg/dL (65-110) H 03/12/17 21:14 Random Glucose 237 mg/dL (70-110) H 03/12/17 06:30 Calcium 9.0 mg/dL (8.4-10.5) 03/12/17 06:30 Phosphorus 3.9 mg/dL (2.5-4.5) 03/10/17 22:05 Magnesium 3.4 mg/dL (1.7-2.2) H 03/10/17 22:05 Total Bilirubin 0.7 mg/dL (0.2-1.3) 03/12/17 06:30 AST 48 U/L (17-59) 03/12/17 06:30 ALT 39 U/L (7-56) 03/12/17 06:30 Alkaline Phosphatase 108 U/L (38-126) 03/12/17 06:30 Lactate Dehydrogenase 847 U/L (333-699) H 03/10/17 22:05 Total Creatine Kinase 452 U/L (35-230) H 03/10/17 22:05 CK-MB (CK-2) 1.1 ng/mL (0.0-3.6) 03/10/17 22:05 CK-MB (CK-2) % Cancelled 03/10/17 22:05 Troponin I 0.04 ng/mL D 03/10/17 22:05 C-React Prot High Sens > 15.00 mg/L (1.00-3.00) H 03/11/17 13:50 Total Protein 8.2 g/dL (5.8-8.3) 03/12/17 06:30 Albumin 3.2 g/dL (3.0-4.8) 03/12/17 06:30 Globulin 5.0 gm/dL 03/12/17 06:30 Albumin/Globulin Ratio 0.6 (1.1-1.8) L 03/12/17 06:30 Procalcitonin 1.13 NG/ML (0.19-0.49) H 03/11/17 13:50 Venous Blood Potassium 4.5 mmol/L (3.6-5.2) 03/11/17 01:05 Urine Color Yellow (YELLOW) 03/11/17 19:00 Urine Appearance Cloudy (CLEAR) 03/11/17 19:00 Urine pH 5.5 (4.7-8.0) 03/11/17 19:00 Ur Specific [place] >= 1.030 (1.005-1.035) 03/11/17 19:00 Urine Protein 100 mg/dL (<30 mg/dL) H 03/11/17 19:00 Urine Glucose (UA) Negative mg/dL (NEGATIVE) 03/11/17 19:00 Urine Ketones Negative mg/dL (NEGATIVE) 03/11/17 19:00 Urine Blood Small (NEGATIVE) H 03/11/17 19:00 Urine Nitrate Negative (NEGATIVE) 03/11/17 19:00 Urine Bilirubin Negative (NEGATIVE) 03/11/17 19:00 Urine Urobilinogen 0.2 E.U./dL (<1 E.U./dL) 03/11/17 19:00 Ur Leukocyte Esterase Negative Jalil/uL (NEGATIVE) 03/11/17 19:00 Urine RBC 1 - 3 /hpf (0-2) 03/11/17 19:00 Urine WBC 0 - 2 /hpf (0-6) 03/11/17 19:00 Ur Epithelial Cells 1 - 3 /hpf (0-5) 03/11/17 19:00 Urine Bacteria Few (NEG) 03/11/17 19:00 Ur Random Creatinine 126 mg/dL 03/11/17 19:00 Ur Random Sodium 15 meq/L 03/11/17 19:00 - Constitutional Appears: Well, No Acute Distress - Head Exam Head Exam: ATRAUMATIC, NORMAL INSPECTION, NORMOCEPHALIC - Eye Exam Eye Exam: Normal appearance - ENT Exam ENT Exam: Normal External Ear Exam - Neck Exam Neck Exam: Normal Inspection - Respiratory Exam Respiratory Exam: Clear to Ausculation Bilateral, NORMAL BREATHING PATTERN. absent: Rales, Rhonchi, Wheezes, Respiratory Distress, Stridor - Cardiovascular Exam Cardiovascular Exam: absent: REGULAR RHYTHM, JVD - GI/Abdominal Exam GI & Abdominal Exam: absent: Distended - Rectal Exam Rectal Exam: Deferred - Exam Additional comments: Deferred. - Extremities Exam Extremities Exam: Normal Inspection - Back Exam Back Exam: NORMAL INSPECTION - Neurological Exam Neurological Exam: Awake - Psychiatric Exam Psychiatric exam: Normal Affect, Normal Mood - Skin Skin Exam: Normal Color Assessment and Plan - Assessment and Plan (Free Text) Assessment: Hypoxia. Exacerbation of PNA. Right lung base infiltrate. HTN. Anemia. Anxiety. Dementia. Leukocytosis. Hypernatremia. Plan: Place patient back on 100% NRM. Continue present management.
--- NOTE | 2017-03-13 00:37 | PN ---
DATE: 03/12/2017 SUBJECTIVE: The patient is in bed, in no acute distress. The patient was seen earlier this morning. PHYSICAL EXAMINATION: VITAL SIGNS: Temperature is 102.6, blood pressure is 130/80, respiratory rate 20, and heart rate is 94. HEENT: Unremarkable. NECK: Supple. LUNGS: Have decreased breath sounds. HEART: Normal S1 and S2. ABDOMEN: Soft. LABORATORY EXAMINATION: Reveals a white count of 11,500, hemoglobin of 12, and platelets of 293. Chemistries reveal a BUN of 54, creatinine of 1.1, and procalcitonin is 1.13. Urinalysis is noted. Blood cultures are negative. ASSESSMENT AND PLAN: This is an 81-year-old male who was seen earlier this morning with past medical history of dementia, deep vein thrombosis, gastrointestinal bleeding, anxiety, hypertension, bedridden with severe sepsis secondary to severe right-sided foot cellulitis and gangrenous changes with acute kidney injury, thus far no growth and blood cultures to follow. We will follow and will need further podiatric intervention. Todd Garcia MD
[2017-03-13 07:14] LABS: HEMOGLOBIN 10.8 g/dL (14.0-18.0); MEAN CELL VOLUME 97.6 fl (80.0-105.0); MEAN CORPUSCULAR HEMOGLOBIN 29.3 pg (25.0-35.0); MEAN PLATELET VOLUME 13.1 fl (7.0-11.0); RBC 3.69 10^6/uL (3.5-6.1); RED CELL DISTRIBUTION WIDTH 16.1 % (11.5-14.5); WHITE BLOOD COUNT 13.7 10^3/ul (4.5-11.0)
[2017-03-13 07:50] LABS: ALB/GLOB RATIO 0.6 (1.1-1.8); ALBUMIN 2.9 g/dL (3.0-4.8); ALT/SGPT 29 U/L (7-56); AST/SGOT 52 U/L (17-59); BLOOD UREA NITROGEN 54 mg/dL (7-21); CALCIUM 8.7 mg/dL (8.4-10.5); GFR AFRICAN-AMERICAN > 60; GFR NON-AFRICAN AMERICAN > 60
--- NOTE | 2017-03-13 08:15 | PN ---
DATE: SUBJECTIVE: I saw Erickson in bed. He had rough night last night. He was atoxic. He needs to be on a nonrebreather. I have told him to keep it on. He is contorted and contracted in bed. He was alert and eating yesterday. He is alert now, but not as strong. MEDICATIONS: He is on Depakote, dextrose, Lovenox, Santyl, Teflaro, and acetaminophen. PHYSICAL EXAMINATION: VITAL SIGNS: He is also having temperature last night of 102.6, it is now down to 99.7 with Tylenol, 80 pulse, 146/88 blood pressure, 22 respiratory rate, and his oxygen saturation one is low as 88% and 94% right now with a nonrebreather. HEENT: His head is atraumatic and normocephalic. His eyes are open, not talking. HEART: Regular rate. LUNGS: Decreased breath sounds, but clear. ABDOMEN: Soft. EXTREMITIES: Contracted. No edema with poor vascular issues of the feet. ASSESSMENT AND PLAN: He is here for high sodium, diabetes, deep venous thrombosis history, hypoxemia, dehydration, right foot heel issues with discoloration, pneumonia, sepsis, acute kidney injury and dementia. He has multiple consults. Infectious diseases, Podiatry, Vascular, Renal, and awaiting Pulmonary. Checking laboratories. Continue with aggressive treatment and care. Hopefully, antibiotics will help his infection. Gerry Davidson DO
[2017-03-13] MEDS ORDERED: Albuterol-Ipratrop 3 mg / 0.5 (3 ml) UD IH PRN (08:18)
[2017-03-13] MEDS: Insulin Reg-HIGH-Coverage SC SCH ×4 (08:35→22:24)
--- NOTE | 2017-03-13 08:52 | PN ---
DATE: 03/12/2017 SUBJECTIVE: I saw him this morning. He is being fed. He is very alert, much better than yesterday. He is eating well too. He is in better condition than yesterday, more alert, looks lot better, little stronger. He is on Depakote, dextrose in water, insulin coverage, Santyl, Teflaro, Tylenol. OBJECTIVE: VITAL SIGNS: 98.9 temperature , it was as high as 100.8 last night; 91 pulse; 129/81 blood pressure, 18 respiratory rate, 92% O2 sat. I will give him some oxygen. HEAD: Atraumatic, normocephalic. EYES: Opened, very bright. THROAT: Moist. NECK: Supple. HEART: Regular rate. LUNGS: Decreased breath sounds, but clear. ABDOMEN: Soft. EXTREMITIES: Contracted and got some discoloration of the feet. LABORATORY DATA: His sodium is down from 171-165, still high, a bit better; potassium 3.8; BUN is down to 54; creatinine is 1.1; GFR is greater than 60; sugar is 205. He is on dextrose. When we get that sodium down, we would change it over. He is on insulin coverage. Calcium is 9, total bili is 0.7, AST is 48, ALT is 39, alk phos 108. C-reactive protein is greater than 15. Procalcitonin is 1.13, high. He has 11.5 white count, 12.2 hemoglobin, 40.8 hematocrit with 193 platelets. ASSESSMENT AND PLAN: He is being seen by Podiatry, Infectious Disease. He has a bunch of things going on, high sodium, diabetes, deep venous thrombosis, acute kidney injury, pneumonia, sepsis, dementia, right foot heel ulcer and dehydration. We will continue aggressive treatment and care. Discussed at length with Infectious Disease this morning. Check his laboratories tomorrow. Gerry Davidson DO
[2017-03-13] MEDS: Enoxaparin 40 mg Syringe SC SCH (08:59)
[2017-03-13] MEDS: Divalproex 125 mg EC Sprinkle Cap PO SCH (09:00)
--- NOTE | 2017-03-13 09:40 | RAD ---
HISTORY: follow up COMPARISON: 03/10/2017. FINDINGS: LUNGS: There is worsening airspace disease in the right lower lobe with air bronchogram. The left lung is clear. PLEURA: No significant pleural effusion identified, no pneumothorax apparent. CARDIOVASCULAR: Normal. OSSEOUS STRUCTURES: There is severe dextroscoliosis in the thoracic spine. VISUALIZED UPPER ABDOMEN: Normal. OTHER FINDINGS: None. IMPRESSION: Worsening right lower lobe pneumonia. Follow-up to resolution is advised
[2017-03-13] MEDS: Collagenase 250 Units/gm Ointment(30 gm) TOP SCH (10:54)
--- NOTE | 2017-03-13 13:05 | US ---
HISTORY: Leg pain and swelling. Evaluate for DVT PHYSICIAN(S): Aydin Doherty MD. TECHNIQUE: Duplex sonography and color-flow Doppler with graded compression were used to evaluate the deep venous systems of both lower extremities. The exam is extremely limited by the patient's contracted position and inability to cooperate FINDINGS: The visualized deep venous systems of both lower extremities are sonographically normal and compressible. Normal wave forms and augmentation are seen. There is no sonographic evidence for deep venous thrombosis in the visualized segments of both lower extremities. IMPRESSION: No sonographic evidence for deep venous thrombosis in the visualized segments of both lower extremities. Very limited study
--- NOTE | 2017-03-13 13:18 | CON ---
DATE: 03/13/2017 PULMONARY CONSULTATION REASON FOR CONSULTATION: Pneumonia. REFERRING PHYSICIAN: Gerry Davidson DO IDENTIFICATION DATA: History is obtained via extensive discussion with the night nurse. I have also reviewed the chart at length. The patient is not an adequate historian. HISTORY OF PRESENT ILLNESS: The patient is a chronically ill 81-year-old male, bedridden, chronically contracted, with past medical history significant for deep venous thrombosis, gastrointestinal bleed, anxiety, and hypertension who presented to [facility] with worsening pain and erythema of his right heel. In the Emergency Room, the patient was noted to have an acute cellulitis. He was thus admitted for additional evaluation. Again, I did discuss the case with the night nurse at length. The night nurse does confirm that the patient has been mildly short of breath, and with cough. There is no history of significant sputum production. There is no history of chest pain, coughing up of blood, or chest pain - made worse with deep respirations. The patient has been febrile during his hospital stay. No history of chills or infectious exposure. No history of night sweats, weight loss or appetite change prior to the above events. No history of calf pains. No history of syncope or diaphoresis. No history of recent travel or trauma. REVIEW OF SYSTEMS: No history of nausea, vomiting or diarrhea. No acute urinary symptoms. Rest of the review of systems is negative. ALLERGIES: NO KNOWN ALLERGIES. SOCIAL HISTORY: Negative for tobacco and negative for alcohol. FAMILY HISTORY: No inheritable diseases. HOME MEDICATIONS: Include milk of magnesium, Tylenol, Lasix, vitamin C, Pepcid and Depakote. PHYSICAL EXAMINATION: GENERAL: The patient is mildly short of breath, but in no acute distress. He is not using accessory muscles for breathing. VITAL SIGNS: Temperature is 100.9, pulse is 82, respirations are 22, and blood pressure is 106/68. Oxygen saturation on a nonrebreather mask is 92%. HEENT: Normocephalic and atraumatic. NECK: No JVD. CARDIOVASCULAR: Systolic ejection murmur at the lower left sternal border. No S3 gallop. LUNGS: Crackles noted at the right base. Minimal bilateral rhonchi. No wheezing. EXTREMITIES: No clubbing, cyanosis or edema is noted. Calves are nontender to palpation. GASTROINTESTINAL: Abdomen is soft, nontender and nondistended. Bowel sounds are positive. SKIN: +right heel cellulitis. NEUROLOGIC: Exam is limited at the present time. PERTINENT LABORATORY DATA: Chest x-ray Was done on 03/10/2017 and reviewed. There is a small patchy right lower lobe infiltrate noted. CBC: White count of 14.7, hemoglobin of 10.8, hematocrit of 36.0, and platelets of 280,000. Complete metabolic profile: Sodium of 160, potassium of 3.5, chloride of 123, BUN of 54, glucose of 246, and albumin of 2.9. Rest of the metabolic profile is within normal limits. IMPRESSION 1. Right lower lobe pneumonia. 2. Acute bronchospasm. 3. Oxygen desaturation. 4. Right heel cellulitis. 5. Multiple electrolyte abnormalities. 6. Anemia. PLAN: 1. Again, I did discuss the case with the night nurse at length. I have also reviewed the chart at length. The patient is a chronically ill 81-year-old male--who was transferred [facility] - for evaluation of his right heel cellulitis. In the emergency room, the patient was noted to have an acute cellulitis. He was also noted to have multiple electrolyte abnormalities. He was thus admitted for additional evaluation. 2. As above, the nurse does note shortness of breath and cough. There were no other pulmonary symptoms reported. The patient did have a chest x-ray on 03/10/2017. A right lower lobe infiltrate was noted. The patient has been pancultured and started on antibiotic therapy. Input by Dr. Garcia is noted. On physical exam, there is mild bronchospasm noted. I will start the patient on nebulizer treatments and inhaled steroids. I will also order aspiration precautions for the patient. Because of the significant alveolar-arterial gradient, I will also order a repeat chest x-ray. The patient is currently a DNR/DNI status. 3. I have also reviewed the laboratory data. Significant electrolyte abnormalities are noted. Dr. Graham (Renal) has been called on the case for evaluation. 4. Clinical status of the patient is very guarded at this point in time. His overall prognosis appears poor. Additional pulmonary intervention will be based on the above results, as well as the clinical status of the patient. I will discuss the above with Dr. Davidson later this morning. Thank you very much for this pulmonary consultation. Berny Valdivia MD [facility] # [id number] KAREN
[2017-03-13] MEDS: Albuterol-Ipratrop 3 mg / 0.5 (3 ml) UD IH SCH ×2 (13:41→20:52)
--- NOTE | 2017-03-13 14:53 | CP.PCM.PN ---
Subjective - Date & Time of Evaluation Date of Evaluation: 03/13/17 Time of Evaluation: 14:49 - Subjective Subjective: Follow up Nephrology Consultation Note Assessment: critical Acute Kidney Injury (N17.9) likely due to pre-renal dehydration state Severe Hypernatremia Sepsis with pneumonia Severe Dementia Hypokalemia Anemia Plan No acute need for renal replacement therapy at this time. No ACEI/ARB due to RADHA and low BP. maintain hemodynamics stable Monitor Input/Output, daily weights and renal function with basic metabolic panel Increase IVF as D5W to 125 ml/hr supplement electrolytes as needed overall prognosis poor Avoid nephrotoxins/NSAIDs Glycemic control Further work up for as per primary team Thanks for allowing me to participate in care of your patient. Will follow patient with you. Please call if any Qs Dr Broderick [place] Office: [phone] Subjective: Noted events overnight. Patients unable to provide ROS Physical Examination: General Appearance: Comfortable, in no acute respiratory distress, on O2 via NRB. cachexic with muscle wasting Vitals reviewed and noted as below Head; Atraumatic, normocephalic ENT: no ulcers no thrush. Tongue is midline. Oropharynx: no rash or ulcers. EYES: Pupils are equal, round and reactive to light accommodation. Eye muscles and extraocular movement intact. Sclera is anicteric. Neck; supple no lymphadenopathy, no thyromegaly or bruit Lungs: Normal respiratory rate/effort. Breath sounds decreased at rt base with crackles Heart: Normal rate. s1s2 normal. No rub or gallop. Extremities: no edema. No varicose veins Neurological: Patient is severly demented and non communicative Skin: Warm and dry. Normal turgor. No rash. Palpitation: Normal elasticity for age Abdomen: Abdomen is soft. Bowel sounds +. There is no abdominal tenderness, no guarding/rigidity no organomegaly Psych: unable MSK: no joint tenderness or swelling. Digits and nails normal, no deformity : kidney or bladder not palpable Labs/imaging reviewed. Past medical history, past surgical history, family history, social history, allergy reviewed and noted as below Family hx: no hx of CKD. Rest non-contributory Objective - Vital Signs/Intake and Output Vital Signs (last 24 hours): Temp Pulse Resp BP Pulse Ox 102 F H 82 24 99/56 L 90 L 03/13/17 12:00 03/13/17 13:44 03/13/17 12:00 03/13/17 12:00 03/13/17 06:00 Intake and Output: 03/13/17 03/13/17 06:59 18:59 Intake Total 1320 Balance 1320 - Medications Medications: Current Medications Acetaminophen (Tylenol 650 Mg Supp) 650 mg RC Q4H PRN PRN Reason: Fever >100.4 F Last Admin: 03/13/17 11:48 Dose: 650 mg Albuterol/Ipratropium (Duoneb 3 Mg/0.5 Mg (3 Ml) Ud) 3 ml IH [id number] ARIEL Last Admin: 03/13/17 13:41 Dose: 3 ml Albuterol/Ipratropium (Duoneb 3 Mg/0.5 Mg (3 Ml) Ud) 3 ml IH Q2H PRN PRN Reason: Shortness of Breath Budesonide (Pulmicort Respules) 0.5 mg IH [id number] [facility] Collagenase (Santyl) 0 gm TOP DAILY ARIEL Stop: 03/17/17 23:00 Last Admin: 03/13/17 10:54 Dose: 1 apful Divalproex Sodium (Depakote Sprinkles) 125 mg PO DAILY ARIEL PRN Reason: Protocol Last Admin: 03/13/17 09:00 Dose: 125 mg Enoxaparin Sodium (Lovenox) 40 mg SC DAILY ARIEL PRN Reason: Protocol Last Admin: 03/13/17 08:59 Dose: 40 mg Ceftaroline Fosamil 400 mg/ (Sodium Chloride) 100 mls @ 100 mls/hr IVPB Q12 ARIEL PRN Reason: Protocol Stop: 03/20/17 12:31 Last Admin: 03/13/17 08:59 Dose: 100 mls/hr Dextrose (Dextrose 5% In Water 1000 Ml) 1,000 mls @ 125 mls/hr IV .Q8H ARIEL Last Admin: 03/13/17 10:54 Dose: 125 mls/hr Insulin Human Regular (Humulin R High) 0 units SC ACHS ARIEL PRN Reason: Protocol Last Admin: 03/13/17 12:34 Dose: Not Given - Labs Labs: 03/13/17 06:20 03/13/17 06:20 PT 18.3 SECONDS (9.4-12.5) H 03/10/17 22:05 INR 1.59 (0.93-1.08) H 03/10/17 22:05 APTT 36.7 Seconds (25.1-36.5) H 03/10/17 22:05
--- NOTE | 2017-03-13 17:17 | CP.PCM.PN ---
<Oneil Serrano - Last Filed: 03/13/17 17:09> Subjective - Date & Time of Evaluation Date of Evaluation: 03/13/17 Time of Evaluation: 17:09 - Subjective Subjective: 81 year old male seen at bedside for deep tissue injury right foot and multiple stage one pressure ulcers left foot. Patient is nonverbal during examination. Per nursing, no acute overnight events and no new complaints about lower extremities Objective - Vital Signs/Intake and Output Vital Signs (last 24 hours): Temp Pulse Resp BP Pulse Ox 101.4 F H 82 24 99/56 L 90 L 03/13/17 16:37 03/13/17 13:44 03/13/17 12:00 03/13/17 12:00 03/13/17 06:00 Intake and Output: 03/13/17 03/13/17 06:59 18:59 Intake Total 1320 Balance 1320 - Medications Medications: Current Medications Acetaminophen (Tylenol 650 Mg Supp) 650 mg RC Q4H PRN PRN Reason: Fever >100.4 F Last Admin: 03/13/17 16:37 Dose: 650 mg Albuterol/Ipratropium (Duoneb 3 Mg/0.5 Mg (3 Ml) Ud) 3 ml IH [id number] ARIEL Last Admin: 03/13/17 13:41 Dose: 3 ml Albuterol/Ipratropium (Duoneb 3 Mg/0.5 Mg (3 Ml) Ud) 3 ml IH Q2H PRN PRN Reason: Shortness of Breath Budesonide (Pulmicort Respules) 0.5 mg IH [id number] [facility] Collagenase (Santyl) 0 gm TOP DAILY ARIEL Stop: 03/17/17 23:00 Last Admin: 03/13/17 10:54 Dose: 1 apful Divalproex Sodium (Depakote Sprinkles) 125 mg PO DAILY ARIEL PRN Reason: Protocol Last Admin: 03/13/17 09:00 Dose: 125 mg Doxycycline Hyclate (Doryx) 100 mg PO Q12 ARIEL PRN Reason: Protocol Stop: 03/22/17 16:46 Enoxaparin Sodium (Lovenox) 40 mg SC DAILY ARIEL PRN Reason: Protocol Last Admin: 03/13/17 08:59 Dose: 40 mg Dextrose (Dextrose 5% In Water 1000 Ml) 1,000 mls @ 125 mls/hr IV .Q8H ARIEL Last Admin: 03/13/17 10:54 Dose: 125 mls/hr Meropenem (Merrem Iv 1 Gm Premix) 50 mls @ 100 mls/hr IVPB Q12 ARIEL PRN Reason: Protocol Stop: 03/22/17 16:35 Insulin Human Regular (Humulin R High) 0 units SC ACHS ARIEL PRN Reason: Protocol Last Admin: 03/13/17 12:34 Dose: Not Given - Labs Labs: 03/13/17 06:20 03/13/17 06:20 PT 18.3 SECONDS (9.4-12.5) H 03/10/17 22:05 INR 1.59 (0.93-1.08) H 03/10/17 22:05 APTT 36.7 Seconds (25.1-36.5) H 03/10/17 22:05 - Constitutional Appears: Well, Non-toxic, No Acute Distress - Extremities Exam Additional comments: LE focused exam: Vasc: DP/PT pulses weakly palpable b/l. Skin temperature warm to warm from proximal to distal. CFT < 3 seconds to all digits. No edema noted b/l Neuro: Epicritic and protective sensation grossly intact b/l Derm: Deep tissue injury with purple/black discoloration noted to lateral aspect of right foot. No open wounds noted to that foot. Stage one ulceration noted to left medial heel and medial left first metatarsal phalangeal joint. No malodor, purulence, fluctuance, drainage, periwound erythema or other clinical signs of infection noted to either foot. MSK: POP to right lateral deep tissue injury. Minimal POP to left foot ulcerations - Neurological Exam Neurological Exam: Alert, Awake - Psychiatric Exam Psychiatric exam: Normal Affect, Normal Mood Assessment and Plan - Assessment and Plan (Free Text) Assessment: 81 year old male seen at bedside for deep tissue injury right foot and multiple stage one pressure ulcers left foot Plan: Patient seen and evaluated at bedside with attending Dr. Lewis Febrile, WBC 13.7 from 11.5 yesterday No evidence of DVT DU right ankle (DP) 0.39, DU left ankle (PT) 0.64 Right foot xray: Normal radiographic findings Continue abx per ID DTI and ulcerations dressed with optifoam dressing B/l feet placed in offloading pads No plan for surgical intervention at this time Podiatry will continue to follow while patient is in house <Kim Lewis - Last Filed: 03/17/17 17:57> Objective - Vital Signs/Intake and Output Vital Signs (last 24 hours): Temp Pulse Resp BP Pulse Ox 100.3 F H 85 18 116/62 94 L 03/17/17 12:00 03/17/17 12:00 03/17/17 12:00 03/17/17 12:00 03/17/17 06:00 Intake and Output: 03/17/17 03/17/17 06:59 18:59 Intake Total 120 0 Balance 120 0 - Labs Labs: 03/16/17 05:45 03/16/17 05:45 PT 18.3 SECONDS (9.4-12.5) H 03/10/17 22:05 INR 1.59 (0.93-1.08) H 03/10/17 22:05 APTT 36.7 Seconds (25.1-36.5) H 03/10/17 22:05 Attending/Attestation - Attestation I have personally seen and examined this patient.: Yes I have fully participated in the care of the patient.: Yes I have reviewed all pertinent clinical information, including history, physical exam and plan: Yes
[2017-03-13] MEDS: Meropenem IV 1 gm in NS 50 ML IVPB SCH ×2 (18:11→22:17)
[2017-03-13] MEDS: Budesonide 0.5 mg/2 ml Inhal Susp UD IH SCH (20:52)
--- NOTE | 2017-03-13 22:07 | PN ---
DATE: 03/13/2017 SUBJECTIVE: The patient is in bed, in no acute distress. The patient is having fevers. OBJECTIVE: VITAL SIGNS: On exam, temperature is 102.1, blood pressure is 90/60. HEENT: Examination of HEENT is unremarkable. NECK: Supple. LUNGS: Have decreased breath sounds. HEART: Normal S1 and S2. ABDOMEN: Soft. EXTREMITIES: Examination of foot is unchanged. LABORATORY EXAMINATION: Reveals a white count of 13,700 and sed rate is 121. Chemistries reveal a BUN of 54, creatinine of 1.1. Procalcitonin of 1.13. Urinalysis is noted. Microbiology reveals urine cultures are negative, blood cultures are negative. Review of orders reveal the patient to be on Teflaro. Chest x-ray is noted, worsening airspace disease in the right lower lobe with air bronchogram, the left lung is clear. Dr. Valdivia's consultation is reviewed and appreciated. ASSESSMENT AND PLAN: This is an 81-year-old male with dementia, deep venous thrombosis, gastrointestinal bleed, anxiety, hypertension, bedridden, severe sepsis with right-sided foot cellulitis and gangrene, and with acute kidney injury and the patient with infiltrate in the right lung base. We will discontinue the Teflaro and use doxycycline and meropenem, sputum workup and we will make further recommendations upon availability. We will follow closely with you. We will discontinue the Teflaro. We will order a sputum culture and urine for Legionella antigen. We will follow closely with you. Todd Garcia MD
[2017-03-14] MEDS: Albuterol-Ipratrop 3 mg / 0.5 (3 ml) UD IH SCH ×4 (01:53→19:35)
[2017-03-14 07:03] LABS: HEMOGLOBIN 10.9 g/dL (14.0-18.0); MEAN CELL VOLUME 96.2 fl (80.0-105.0); MEAN CORPUSCULAR HEMOGLOBIN 29.2 pg (25.0-35.0); MEAN CORPUSCULAR HGB CONC 30.4 g/dl (31.0-37.0); RBC 3.73 10^6/uL (3.5-6.1); RED CELL DISTRIBUTION WIDTH 15.9 % (11.5-14.5); WHITE BLOOD COUNT 12.2 10^3/ul (4.5-11.0)
[2017-03-14] MEDS: Budesonide 0.5 mg/2 ml Inhal Susp UD IH SCH ×2 (08:03→19:35)
--- NOTE | 2017-03-14 08:10 | PN ---
DATE: 03/14/2017 PULMONARY NOTE SUBJECTIVE: The patient appears more awake and alert this morning. He is mildly short of breath, but in no acute distress. PHYSICAL EXAMINATION VITAL SIGNS: Temperature is 99.4, pulse 79, respirations 20/22, blood pressure 111/67. Oxygen saturation on a nonrebreather mask is 96%. HEENT: Normocephalic, atraumatic. No JVD. CARDIOVASCULAR: Systolic ejection murmur at the lower left sternal border. No S3 gallop. LUNGS: Crackles noted at the right base. Less rhonchi. No wheezing. EXTREMITIES: No clubbing, cyanosis or edema. Calves are nontender to palpation. GI: Abdomen is soft, nontender and nondistended. Bowel sounds are positive. SKIN: Positive right heel cellulitis. NEUROLOGIC: Limited at the present time. PERTINENT LABORATORY DATA: Chest x-ray was repeated yesterday and reviewed. There is a slight increase in the right lower lobe infiltrate noted. IMPRESSION: 1. Right lower lobe pneumonia. 2. Acute bronchospasm. 3. Oxygen desaturation. 4. Right heel cellulitis. 5. Multiple electrolyte abnormalities. 6. Anemia. PLAN: The patient appears much more awake and alert this morning. He is mildly short of breath, but in no acute distress. I did discuss the case with the night nurse at length. The night nurse stated that the patient had a pretty good night. On physical exam, there is less bronchospasm noted. I will continue the current nebulizer treatments and aspiration precautions for now. I have also asked the nurse to change the mask to a 50% Venti mask. We will monitor the saturations. I would continue with the antibiotic coverage as per Infectious Disease. Input by Dr. Garcia is noted. Temperatures are now resolving. Leukocytosis is also resolving. Clinical status of the patient is certainly improved. However, again, the future status/prognosis for this chronically ill patient does remain very guarded. I will discuss the above with Dr. Davidson. Berny Valdivia MD MTDDivya
[2017-03-14 08:43] LABS: ALB/GLOB RATIO 0.6 (1.1-1.8); ALBUMIN 2.5 g/dL (3.0-4.8); ALT/SGPT 32 U/L (7-56); AST/SGOT 62 U/L (17-59); BLOOD UREA NITROGEN 39 mg/dL (7-21); CALCIUM 8.2 mg/dL (8.4-10.5); GFR AFRICAN-AMERICAN > 60; GFR NON-AFRICAN AMERICAN > 60
[2017-03-14] MEDS: Insulin Reg-HIGH-Coverage SC SCH ×4 (08:51→22:03)
[2017-03-14] MEDS: Meropenem IV 1 gm in NS 50 ML IVPB SCH ×2 (12:03→21:53)
[2017-03-14] MEDS: Divalproex 125 mg EC Sprinkle Cap PO SCH (12:19)
[2017-03-14] MEDS: Enoxaparin 40 mg Syringe SC SCH (13:14)
--- NOTE | 2017-03-14 13:18 | PN ---
SUBJECTIVE: I saw him resting comfortably in bed. He is more alert, not talking, moving his arms a little bit. He has multiple issues going on. He has a high sodium which is down to 158, diabetes, DVT, he has a right heel ulcer demarcated with gangrene, right lower lobe pneumonia, sepsis, acute kidney injury, dehydration, and dementia. He has been seen by Infectious Disease, Podiatry, I called in Vascular, has not seen him yet, Renal, and Pulmonary. OBJECTIVE: VITAL SIGNS: He has 98.4 temperature, 61 pulse, 125/67 blood pressure, 20 respiratory rate, 96% saturation on nonrebreather. HEENT: Head is atraumatic, normocephalic. He is looking at me. HEART: Regular rate. LUNGS: Decreased breath sounds but clear. ABDOMEN: Soft. EXTREMITIES: Contracted. He has got a right heel ulcer. MEDICATIONS: He is currently on Depakote, dextrose, Doryx, DuoNeb, insulin, Lovenox, Merrem, Pulmicort, Santyl, and Tylenol. LABORATORY DATA: He has 158 sodium, still coming down, it was as high as 170, potassium is 3.9, BUN is 39, creatinine 0.8, getting better, GFR is greater than 60, sugar is 204, calcium is 8.2, total bilirubin is 0.6, AST is 62, ALT is 32, alkaline phosphatase is 101, total protein 6.7, white count 12.2, hemoglobin 10.9, hematocrit 35.9, platelets 242. ASSESSMENT AND PLAN: We are going to continue with aggressive treatment and care. He is being seen by multiple physicians. He has multiple problems at 81 years of age. He is bedridden. I am not sure if we will be going towards a surgical procedure for the right heel, await Podiatry to come to the chart. In the meantime, IV antibiotics for heel cellulitis and pneumonia. We will check his labs tomorrow. Gerry Davidson DO
--- NOTE | 2017-03-14 18:08 | CP.PCM.PN ---
Subjective - Date & Time of Evaluation Date of Evaluation: 03/14/17 Time of Evaluation: 18:05 - Subjective Subjective: House Physician Note: Called by nurse to evaluate [id number], Mr. Erickson Lind for desaturation of SaO2 to 80's while on ventimask at 50% Fio2. Patient is an 81yo male who was admitted for sepsis secondary to right lower lobe pneumonia and right heel cellulitis in the setting of hypernatremia. On evaluation, patient was noted to have ronchi bilaterally. Bed was elevated to 45 degrees, STAT duoneb treatment ordered and patient changed to nonrebreather. Fluids decreased to 75cc/hr. Patient O2sat improved to ~95%. ROS limited due to patient's baseline dementia. Physical: Head: atramautic normocephalic Cardio: S1, S2, no rubs/gallops/JVD Pulm: Ronchi bilaterally, no wheezing Abdomen: Soft, non-tender, nondistended Extremities: no clubbing, cyanosis or edema Plan: O2 via nonrebreather HOB > 45' STAT duoneb treatment D5W changed to 75cc/hr Notified PMD Objective - Vital Signs/Intake and Output Vital Signs (last 24 hours): Temp Pulse Resp BP Pulse Ox 100.6 F H 88 24 113/62 89 L 03/14/17 12:20 03/14/17 12:00 03/14/17 12:00 03/14/17 12:00 03/14/17 16:27 Intake and Output: 03/14/17 03/14/17 06:59 18:59 Intake Total 1670 Balance 1670 - Medications Medications: Current Medications Acetaminophen (Tylenol 650 Mg Supp) 650 mg RC Q4H PRN PRN Reason: Fever >100.4 F Last Admin: 03/14/17 12:20 Dose: 650 mg Albuterol/Ipratropium (Duoneb 3 Mg/0.5 Mg (3 Ml) Ud) 3 ml IH [id number] [facility] Last Admin: 03/14/17 13:40 Dose: 3 ml Albuterol/Ipratropium (Duoneb 3 Mg/0.5 Mg (3 Ml) Ud) 3 ml IH Q2H PRN PRN Reason: Shortness of Breath Budesonide (Pulmicort Respules) 0.5 mg IH [id number] [facility] Last Admin: 03/14/17 08:03 Dose: 0.5 mg Collagenase (Santyl) 0 gm TOP DAILY ARIEL Stop: 03/17/17 23:00 Last Admin: 03/13/17 10:54 Dose: 1 apful Divalproex Sodium (Depakote Sprinkles) 125 mg PO DAILY ARIEL PRN Reason: Protocol Last Admin: 03/14/17 12:19 Dose: 125 mg Doxycycline Hyclate (Doryx) 100 mg PO Q12 ARIEL PRN Reason: Protocol Stop: 03/22/17 16:46 Last Admin: 03/14/17 12:19 Dose: 100 mg Enoxaparin Sodium (Lovenox) 40 mg SC DAILY ARIEL PRN Reason: Protocol Last Admin: 03/14/17 13:14 Dose: 40 mg Meropenem (Merrem Iv 1 Gm Premix) 50 mls @ 100 mls/hr IVPB Q12 ARIEL PRN Reason: Protocol Stop: 03/22/17 16:35 Last Admin: 03/14/17 12:03 Dose: 100 mls/hr Dextrose (Dextrose 5% In Water 1000 Ml) 1,000 mls @ 75 mls/hr IV .[id number] [facility] Insulin Human Regular (Humulin R High) 0 units SC ACHS ARIEL PRN Reason: Protocol Last Admin: 03/14/17 17:24 Dose: Not Given - Labs Labs: 03/14/17 05:30 03/14/17 07:00 PT 18.3 SECONDS (9.4-12.5) H 03/10/17 22:05 INR 1.59 (0.93-1.08) H 03/10/17 22:05 APTT 36.7 Seconds (25.1-36.5) H 03/10/17 22:05
--- NOTE | 2017-03-14 18:39 | PN ---
DATE: SUBJECTIVE: This is an 81-year-old intubated. The patient seen at bedside for continued evaluation and management of deep tissue injuries to his right foot as well as multiple stage I pressure ulcerations to his left foot. The patient does not respond to any questioning as he is intubated. PHYSICAL EXAMINATION: VITAL SIGNS: The patient's vitals revealed temperature of 98.4, pulse rate of 61, blood pressure 125/67, respiratory rate of 20. Weakly palpable pedal pulses noted bilaterally. Capillary filling time is delayed x10. There is noted to be no lower extremity edema. Protective sensation intact using 5.07 g monofilament wire testing. There is noted to be a deep tissue injuries which are present on the lateral aspect of the right foot pain with an ulceration located on the right heel. The deep tissue injuries show no signs of opening and no signs of drainage. There is noted to be a gangrenous ulceration on the right heel secondary to deep tissue injury formation. There is noted to be stage I ulceration on the left medial heel and left first metatarsophalangeal joint. There is noted to be no drainage, no malodor and no clinical signs of infection at either ulceration site. LABORATORY DATA: Findings revealed white count of 12.2, hemoglobin of 10.9, hematocrit of 35.9, platelet count of 242. His ESR is elevated at 121. The right foot x-rays reveal no radiographic evidence of osteomyelitis at the underlying trauma sites. ASSESSMENT: An 81-year-old male seen at bedside for deep tissue injuries as well as full-thickness ulcerations to his right and left foot. PLAN: The patient's wounds were cleansed with normal sterile saline. We will apply Optifoam wound dressings to all wounds and continue to offload using the foam multi Podus boots. There is no plans for any surgical intervention at this time. The patient will be seen and followed daily., Amrit Valencia DPM
--- NOTE | 2017-03-14 19:08 | CP.PCM.PN ---
Subjective - Date & Time of Evaluation Date of Evaluation: 03/14/17 Time of Evaluation: 12:00 - Subjective Subjective: Follow up Nephrology Consultation Note Assessment: critical Acute Kidney Injury (N17.9) likely due to pre-renal dehydration state Severe Hypernatremia Sepsis with pneumonia Severe Dementia Hypokalemia Anemia Plan No acute need for renal replacement therapy at this time. No ACEI/ARB due to RADHA and low BP. maintain hemodynamics stable Monitor Input/Output, daily weights and renal function with basic metabolic panel continue with IVF as D5W supplement electrolytes as needed overall prognosis poor. consider palliative care Avoid nephrotoxins/NSAIDs Glycemic control Further work up for as per primary team Thanks for allowing me to participate in care of your patient. Will follow patient with you. Please call if any Qs Dr Broderick [place] Office: [phone] Subjective: Noted events overnight. Patients unable to provide ROS Physical Examination: General Appearance: Comfortable, in no acute respiratory distress, on O2 via face mask. cachexic with muscle wasting Vitals reviewed and noted as below Head; Atraumatic, normocephalic ENT: no ulcers no thrush. Tongue is midline. Oropharynx: no rash or ulcers. EYES: Pupils are equal, round and reactive to light accommodation. Eye muscles and extraocular movement intact. Sclera is anicteric. Neck; supple no lymphadenopathy, no thyromegaly or bruit Lungs: Normal respiratory rate/effort. Breath sounds decreased at rt base with crackles Heart: Normal rate. s1s2 normal. No rub or gallop. Extremities: no edema. No varicose veins Neurological: Patient is severly demented and non communicative Skin: Warm and dry. Normal turgor. No rash. Palpitation: Normal elasticity for age Abdomen: Abdomen is soft. Bowel sounds +. There is no abdominal tenderness, no guarding/rigidity no organomegaly Psych: unable MSK: no joint tenderness or swelling. Digits and nails normal, no deformity : kidney or bladder not palpable Labs/imaging reviewed. Past medical history, past surgical history, family history, social history, allergy reviewed and noted as below Family hx: no hx of CKD. Rest non-contributory Objective - Vital Signs/Intake and Output Vital Signs (last 24 hours): Temp Pulse Resp BP Pulse Ox 100.6 F H 88 24 113/62 89 L 03/14/17 12:20 03/14/17 12:00 03/14/17 12:00 03/14/17 12:00 03/14/17 16:27 - Medications Medications: Current Medications Acetaminophen (Tylenol 650 Mg Supp) 650 mg RC Q4H PRN PRN Reason: Fever >100.4 F Last Admin: 03/14/17 12:20 Dose: 650 mg Albuterol/Ipratropium (Duoneb 3 Mg/0.5 Mg (3 Ml) Ud) 3 ml IH [id number] [facility] Last Admin: 03/14/17 13:40 Dose: 3 ml Albuterol/Ipratropium (Duoneb 3 Mg/0.5 Mg (3 Ml) Ud) 3 ml IH Q2H PRN PRN Reason: Shortness of Breath Budesonide (Pulmicort Respules) 0.5 mg IH [id number] [facility] Last Admin: 03/14/17 08:03 Dose: 0.5 mg Collagenase (Santyl) 0 gm TOP DAILY [facility] Stop: 03/17/17 23:00 Last Admin: 03/13/17 10:54 Dose: 1 apful Divalproex Sodium (Depakote Sprinkles) 125 mg PO DAILY [facility] PRN Reason: Protocol Last Admin: 03/14/17 12:19 Dose: 125 mg Doxycycline Hyclate (Doryx) 100 mg PO Q12 [facility] PRN Reason: Protocol Stop: 03/22/17 16:46 Last Admin: 03/14/17 12:19 Dose: 100 mg Enoxaparin Sodium (Lovenox) 40 mg SC DAILY [facility] PRN Reason: Protocol Last Admin: 03/14/17 13:14 Dose: 40 mg Meropenem (Merrem Iv 1 Gm Premix) 50 mls @ 100 mls/hr IVPB Q12 [facility] PRN Reason: Protocol Stop: 03/22/17 16:35 Last Admin: 03/14/17 12:03 Dose: 100 mls/hr Dextrose (Dextrose 5% In Water 1000 Ml) 1,000 mls @ 75 mls/hr IV .[id number] [facility] Last Admin: 03/14/17 18:22 Dose: 75 mls/hr Insulin Human Regular (Humulin R High) 0 units SC ACHS [facility] PRN Reason: Protocol Last Admin: 03/14/17 17:24 Dose: Not Given - Labs Labs: 03/14/17 05:30 03/14/17 07:00 PT 18.3 SECONDS (9.4-12.5) H 03/10/17 22:05 INR 1.59 (0.93-1.08) H 03/10/17 22:05 APTT 36.7 Seconds (25.1-36.5) H 03/10/17 22:05
--- NOTE | 2017-03-15 00:58 | PN ---
DATE: 03/14/2017 SUBJECTIVE: The patient is in bed, in no acute distress, nontoxic. The patient is having fevers. PHYSICAL EXAMINATION VITAL SIGNS: Temperature is 101.1, blood pressure is 120/60, respiratory rate of 21. HEENT: Unremarkable. NECK: Supple. LUNGS: Have decreased breath sounds. HEART: Normal S1, S2. ABDOMEN: Soft, nontender. LABORATORY DATA: Reveals the patient's white count of 12,200, and sed rate is 121. BUN of 39, creatinine of 0.8. Microbiology reveals the blood cultures are no growth. Urine cultures are negative. ASSESSMENT AND PLAN: This is an 81-year-old male with dementia, deep venous thrombosis, gastrointestinal bleed, anxiety, hypertension, bedridden, severe sepsis, right-sided foot cellulitis and gangrene, acute kidney injury with right lung pneumonia and currently on meropenem and doxycycline with negative blood cultures and negative urine cultures and ultrasound arterial side of the lower extremity is pending. Dr. Valencia's note is reviewed from today. I discussed with him. Todd Garcia MD
[2017-03-15] MEDS: Albuterol-Ipratrop 3 mg / 0.5 (3 ml) UD IH SCH ×4 (01:31→19:58)
[2017-03-15 07:16] LABS: HEMOGLOBIN 9.2 g/dL (14.0-18.0); MEAN CELL VOLUME 95.3 fl (80.0-105.0); MEAN CORPUSCULAR HEMOGLOBIN 28.9 pg (25.0-35.0); MEAN CORPUSCULAR HGB CONC 30.4 g/dl (31.0-37.0); RBC 3.18 10^6/uL (3.5-6.1); RED CELL DISTRIBUTION WIDTH 15.4 % (11.5-14.5); WHITE BLOOD COUNT 11.2 10^3/ul (4.5-11.0)
[2017-03-15 07:37] LABS: ALB/GLOB RATIO 0.6 (1.1-1.8); ALBUMIN 2.6 g/dL (3.0-4.8); ALT/SGPT 33 U/L (7-56); AST/SGOT 83 U/L (17-59); BLOOD UREA NITROGEN 30 mg/dL (7-21); GFR AFRICAN-AMERICAN > 60; GFR NON-AFRICAN AMERICAN > 60
[2017-03-15] MEDS: Budesonide 0.5 mg/2 ml Inhal Susp UD IH SCH ×2 (07:47→19:58)
--- NOTE | 2017-03-15 09:02 | PN ---
DATE: 03/15/2017 PULMONARY PROGRESS NOTE SUBJECTIVE: The patient is mildly short of breath at the present time. He is in no acute distress. PHYSICAL EXAMINATION: VITAL SIGNS: Temperature is 99.2, pulse is 80, respirations are 22, and blood pressure is 118/57. Oxygen saturation on a nonrebreather is 97%. HEENT: Normocephalic and atraumatic. NECK: No JVD. CARDIOVASCULAR: Systolic ejection murmur at the lower left sternal border. No S3 gallop. LUNGS: Crackles noted at the right base. Increased rhonchi this morning. No wheezing. EXTREMITIES: No clubbing, cyanosis or edema. Calves are nontender to palpation. GASTROINTESTINAL: Abdomen is soft, nontender and nondistended. Bowel sounds are positive. SKIN: Positive right heel cellulitis. NEUROLOGIC: Exam is limited at the present time. IMPRESSION 1. Right lower lobe pneumonia. 2. Acute bronchospasm. 3. Oxygen desaturation. 4. Right heel cellulitis. 5. Multiple electrolyte abnormalities. 6. Anemia. PLAN: The patient is mildly short of breath this morning, but in no acute distress. He is somewhat more lethargic this morning in addition. On physical exam, increased rhonchi are noted. I will continue the current nebulizer treatments and aspiration precautions. I will also order the patient to be suctioned on a p.r.n. basis. I would continue with the antibiotic coverage as per Infectious Diseases. Temperatures are decreasing. Repeat a.m. labs are pending. Input by Renal is also noted. Clinical status of the patient remains very guarded at this point in time. His overall status/prognosis is poor. All are aware. I will discuss the above with Dr. Davidson this morning. Berny Valdivia MD MTDDivya
[2017-03-15] MEDS: Meropenem IV 1 gm in NS 50 ML IVPB SCH ×2 (09:30→21:32)
[2017-03-15] MEDS: Enoxaparin 40 mg Syringe SC SCH (10:04)
[2017-03-15] MEDS: Divalproex 125 mg EC Sprinkle Cap PO SCH (10:04)
--- NOTE | 2017-03-15 10:06 | CP.PCM.PN ---
<Irene Arellano - Last Filed: 03/15/17 10:34> Subjective - Date & Time of Evaluation Date of Evaluation: 03/15/17 Time of Evaluation: 10:06 - Subjective Subjective: 81 year old male seen at bedside with attending Dr. Lewis for deep tissue injury of the right foot and multiple stage one pressure ulcers to the left foot. Patient is nonverbal during examination. Per nursing, no acute overnight events and no new complaints about lower extremities. Nurse denies any episodes of N/V. Pt noted to be febrile overnight with Tmax 101.9. Objective - Vital Signs/Intake and Output Vital Signs (last 24 hours): Temp Pulse Resp BP Pulse Ox 99.2 F 80 22 118/57 L 97 03/15/17 06:00 03/15/17 06:00 03/15/17 06:00 03/15/17 06:00 03/15/17 06:00 Intake and Output: 03/15/17 03/15/17 06:59 18:59 Intake Total 1020 0 Balance 1020 0 - Medications Medications: Current Medications Acetaminophen (Tylenol 650 Mg Supp) 650 mg RC Q4H PRN PRN Reason: Fever >100.4 F Last Admin: 03/15/17 00:29 Dose: 650 mg Albuterol/Ipratropium (Duoneb 3 Mg/0.5 Mg (3 Ml) Ud) 3 ml IH [id number] [facility] Last Admin: 03/15/17 07:47 Dose: 3 ml Albuterol/Ipratropium (Duoneb 3 Mg/0.5 Mg (3 Ml) Ud) 3 ml IH Q2H PRN PRN Reason: Shortness of Breath Last Admin: 03/14/17 17:55 Dose: 3 ml Budesonide (Pulmicort Respules) 0.5 mg IH [id number] [facility] Last Admin: 03/15/17 07:47 Dose: 0.5 mg Collagenase (Santyl) 0 gm TOP DAILY [facility] Stop: 03/17/17 23:00 Last Admin: 03/13/17 10:54 Dose: 1 apful Divalproex Sodium (Depakote Sprinkles) 125 mg PO DAILY [facility] PRN Reason: Protocol Last Admin: 03/14/17 12:19 Dose: 125 mg Doxycycline Hyclate (Doryx) 100 mg PO Q12 [facility] PRN Reason: Protocol Stop: 03/22/17 16:46 Last Admin: 03/14/17 22:06 Dose: Not Given Enoxaparin Sodium (Lovenox) 40 mg SC DAILY [facility] PRN Reason: Protocol Last Admin: 03/14/17 13:14 Dose: 40 mg Meropenem (Merrem Iv 1 Gm Premix) 50 mls @ 100 mls/hr IVPB Q12 [facility] PRN Reason: Protocol Stop: 03/22/17 16:35 Last Admin: 03/15/17 09:30 Dose: 100 mls/hr Dextrose (Dextrose 5% In Water 1000 Ml) 1,000 mls @ 75 mls/hr IV .[id number] [facility] Last Admin: 03/15/17 01:00 Dose: 75 mls/hr Potassium Chloride (Potassium Chloride 10 Meq/100 Ml) 10 meq in 100 mls @ 50 mls/hr IVPB ONCE ONE Stop: 03/15/17 11:03 Insulin Human Regular (Humulin R High) 0 units SC ACHS [facility] PRN Reason: Protocol Last Admin: 03/14/17 22:03 Dose: Not Given - Labs Labs: 03/15/17 06:30 03/15/17 06:30 PT 18.3 SECONDS (9.4-12.5) H 03/10/17 22:05 INR 1.59 (0.93-1.08) H 03/10/17 22:05 APTT 36.7 Seconds (25.1-36.5) H 03/10/17 22:05 - Constitutional Appears: Well, Non-toxic, No Acute Distress - Extremities Exam Additional comments: LE focused exam: Vasc: DP/PT pulses weakly palpable B/L. Skin temperature warm to warm from proximal to distal. CFT < 3 seconds to all digits. No edema noted B/L. Neuro: Epicritic and protective sensation grossly intact B/L. Derm: Deep tissue injury with purple/black discoloration noted to lateral aspect of right foot. No open wounds noted to that foot. Stage one ulceration noted to left medial heel and medial left first metatarsal phalangeal joint. No malodor, purulence, fluctuance, drainage, periwound erythema or other clinical signs of infection noted to either foot. MSK: Tenderness to palpation of right lateral deep tissue injury. Minimal pain on palpation to left foot ulcerations - Neurological Exam Neurological Exam: Alert, Awake - Psychiatric Exam Additional comments: unable to assess Assessment and Plan - Assessment and Plan (Free Text) Assessment: 81 year old male seen at bedside for deep tissue injury right foot and multiple stage one pressure ulcers left foot Plan: Patient seen and evaluated at bedside with attending Dr. Lewis Febrile with Tmax 101.9 overnight; WBC 11.2 No evidence of DVT DU right ankle (DP) 0.39, DU left ankle (PT) 0.64 Right foot xray: Normal radiographic findings Continue abx per ID - Meropenem DTI and ulcerations dressed with optifoam dressing B/l feet placed in offloading pads No plan for surgical intervention at this time Podiatry will continue to follow while patient is in house <Kim Lewis - Last Filed: 03/17/17 17:58> Objective - Vital Signs/Intake and Output Vital Signs (last 24 hours): Temp Pulse Resp BP Pulse Ox 100.3 F H 85 18 116/62 94 L 03/17/17 12:00 03/17/17 12:00 03/17/17 12:00 03/17/17 12:00 03/17/17 06:00 Intake and Output: 03/17/17 03/17/17 06:59 18:59 Intake Total 120 0 Balance 120 0 - Labs Labs: 03/16/17 05:45 03/16/17 05:45 PT 18.3 SECONDS (9.4-12.5) H 03/10/17 22:05 INR 1.59 (0.93-1.08) H 03/10/17 22:05 APTT 36.7 Seconds (25.1-36.5) H 03/10/17 22:05 Attending/Attestation - Attestation I have personally seen and examined this patient.: Yes I have fully participated in the care of the patient.: Yes I have reviewed all pertinent clinical information, including history, physical exam and plan: Yes
[2017-03-15] MEDS: Insulin Reg-HIGH-Coverage SC SCH ×4 (10:30→22:33)
--- NOTE | 2017-03-15 12:34 | PN ---
DATE: 03/15/2017 SUBJECTIVE: I saw Erickson resting in bed, his eyes are open, he is really not that verbal this morning. He had 102 temp last night, he is still spiking temps. He is eating a little bit, not much at all. He has dementia, DVT, hypertension, bedridden, severe sepsis, right pneumonia, acute kidney injury, right foot cellulitis and gangrene. He has no surgical intervention as per Podiatry. He is on IV antibiotics. PHYSICAL EXAMINATION: VITAL SIGNS: Presently, his temperature is 99.2, 80 pulse, 118/57 blood pressure, 22 respiratory rate, and 97% O2 sat on nonrebreather. HEENT: His eyes are open. He is not really talking. HEART: Regular rate. LUNGS: Decreased breath sounds, but clear. ABDOMEN: Soft. EXTREMITIES: He has contracted all 4 extremities, and he has got a right foot cellulitis with some gangrene. MEDICATIONS: He is currently on Depakote, dextrose, Doryx, DuoNeb, insulin coverage, Lovenox, Merrem IV, Pulmicort, Santyl, and Tylenol. LABORATORY DATA: He has 158 sodium, he also has high sodium waiting for the sodium to come down, BUN 39, creatinine 0.8, GFR is greater than 60, last sugar was 179, calcium is 8.2, AST is 62, ALT is 32, and alkaline phosphatase is 101. White count is 12.2, 10.9 hemoglobin, 35.9 hematocrit with 242 platelets. ASSESSMENT AND PLAN: He has been by numerous doctors, Infectious Disease, Renal, Podiatry, Pulmonary, and GI. When I get the okay, I could transfer him to a facility for IV antibiotics, we will do that and hopefully his diet and his eating will improve, otherwise might need a feeding tube. Continue with the present treatment and care. Gerry Davidson DO
--- NOTE | 2017-03-15 15:08 | CP.PCM.PN ---
Subjective - Date & Time of Evaluation Date of Evaluation: 03/15/17 Time of Evaluation: 15:08 - Subjective Subjective: Follow up Nephrology Consultation Note Assessment: critical Acute Kidney Injury (N17.9) likely due to pre-renal dehydration state Severe Hypernatremia Sepsis with pneumonia Severe Dementia Hypokalemia Anemia Plan No acute need for renal replacement therapy at this time. No ACEI/ARB due to RADHA and low BP. maintain hemodynamics stable Monitor Input/Output, daily weights and renal function with basic metabolic panel continue with IVF as D5W supplement electrolytes as needed overall prognosis poor. consider palliative care Avoid nephrotoxins/NSAIDs Glycemic control Further work up for as per primary team Thanks for allowing me to participate in care of your patient. Will follow patient with you. Please call if any Qs Dr Broderick [place] Office: [phone] Subjective: Noted events overnight. Patients unable to provide ROS Physical Examination: General Appearance: Comfortable, in no acute respiratory distress, on O2 via face mask. cachexic with muscle wasting Vitals reviewed and noted as below Head; Atraumatic, normocephalic ENT: no ulcers no thrush. Tongue is midline. Oropharynx: no rash or ulcers. EYES: Pupils are equal, round and reactive to light accommodation. Eye muscles and extraocular movement intact. Sclera is anicteric. Neck; supple no lymphadenopathy, no thyromegaly or bruit Lungs: Normal respiratory rate/effort. Breath sounds decreased at rt base with crackles Heart: Normal rate. s1s2 normal. No rub or gallop. Extremities: no edema. No varicose veins Neurological: Patient is severly demented and non communicative Skin: Warm and dry. Normal turgor. No rash. Palpitation: Normal elasticity for age Abdomen: Abdomen is soft. Bowel sounds +. There is no abdominal tenderness, no guarding/rigidity no organomegaly Psych: unable MSK: no joint tenderness or swelling. Digits and nails normal, no deformity : kidney or bladder not palpable Labs/imaging reviewed. Past medical history, past surgical history, family history, social history, allergy reviewed and noted as below Family hx: no hx of CKD. Rest non-contributory Objective - Vital Signs/Intake and Output Vital Signs (last 24 hours): Temp Pulse Resp BP Pulse Ox 99.2 F 80 22 118/57 L 97 03/15/17 06:00 03/15/17 06:00 03/15/17 06:00 03/15/17 06:00 03/15/17 06:00 Intake and Output: 03/15/17 03/15/17 06:59 18:59 Intake Total 1020 0 Balance 1020 0 - Medications Medications: Current Medications Acetaminophen (Tylenol 650 Mg Supp) 650 mg RC Q4H PRN PRN Reason: Fever >100.4 F Last Admin: 03/15/17 00:29 Dose: 650 mg Albuterol/Ipratropium (Duoneb 3 Mg/0.5 Mg (3 Ml) Ud) 3 ml IH [id number] [facility] Last Admin: 03/15/17 14:25 Dose: 3 ml Albuterol/Ipratropium (Duoneb 3 Mg/0.5 Mg (3 Ml) Ud) 3 ml IH Q2H PRN PRN Reason: Shortness of Breath Last Admin: 03/14/17 17:55 Dose: 3 ml Budesonide (Pulmicort Respules) 0.5 mg IH [id number] [facility] Last Admin: 03/15/17 07:47 Dose: 0.5 mg Collagenase (Santyl) 0 gm TOP DAILY [facility] Stop: 03/17/17 23:00 Last Admin: 03/13/17 10:54 Dose: 1 apful Divalproex Sodium (Depakote Sprinkles) 125 mg PO DAILY [facility] PRN Reason: Protocol Last Admin: 03/15/17 10:04 Dose: 125 mg Doxycycline Hyclate (Doryx) 100 mg PO Q12 [facility] PRN Reason: Protocol Stop: 03/22/17 16:46 Last Admin: 03/15/17 10:04 Dose: 100 mg Enoxaparin Sodium (Lovenox) 40 mg SC DAILY [facility] PRN Reason: Protocol Last Admin: 03/15/17 10:04 Dose: 40 mg Meropenem (Merrem Iv 1 Gm Premix) 50 mls @ 100 mls/hr IVPB Q12 [facility] PRN Reason: Protocol Stop: 03/22/17 16:35 Last Admin: 03/15/17 09:30 Dose: 100 mls/hr Dextrose (Dextrose 5% In Water 1000 Ml) 1,000 mls @ 75 mls/hr IV .[id number] [facility] Last Admin: 03/15/17 15:03 Dose: 75 mls/hr Insulin Human Regular (Humulin R High) 0 units SC ACHS [facility] PRN Reason: Protocol Last Admin: 03/15/17 10:30 Dose: 4 units - Labs Labs: 03/15/17 06:30 03/15/17 06:30 PT 18.3 SECONDS (9.4-12.5) H 03/10/17 22:05 INR 1.59 (0.93-1.08) H 03/10/17 22:05 APTT 36.7 Seconds (25.1-36.5) H 03/10/17 22:05
--- NOTE | 2017-03-16 01:20 | PN ---
DATE: 03/15/2017 SUBJECTIVE: The patient is in bed, in no acute distress, nontoxic. He was seen early this morning. PHYSICAL EXAMINATION VITAL SIGNS: Temperature is 102.2, blood pressure is 118/50, respiratory rate of 18 and heart rate of 97. HEENT: Unremarkable. NECK: Supple. LUNGS: Have decreased breath sounds. HEART: Normal S1 and S2. ABDOMEN: Soft and nontender. LABORATORY DATA: Reveals a white count of 11,200 and hemoglobin of 9. BUN of 30 and creatinine of 0.7. Procalcitonin is 1.13. Microbiology reveals the blood cultures and urine cultures are negative. Review of orders reveals the patient to be on doxycycline and meropenem. ASSESSMENT AND PLAN: This is an 81-year-old male with dementia, deep venous thrombosis, gastrointestinal bleed, anxiety, hypertension, bedridden, severe sepsis, right-sided foot cellulitis and gangrene, acute kidney injury and right lung pneumonia on meropenem and doxycycline. Continues to have fevers. We will follow with you. Case discussed with Dr. Gerry Davidson. Todd Garcia MD
[2017-03-16] MEDS: Albuterol-Ipratrop 3 mg / 0.5 (3 ml) UD IH SCH ×4 (04:03→22:16)
[2017-03-16 06:37] LABS: HEMOGLOBIN 9.8 g/dL (14.0-18.0); MEAN CELL VOLUME 93.8 fl (80.0-105.0); MEAN CORPUSCULAR HEMOGLOBIN 28.7 pg (25.0-35.0); MEAN CORPUSCULAR HGB CONC 30.6 g/dl (31.0-37.0); MEAN PLATELET VOLUME 12.3 fl (7.0-11.0); RBC 3.41 10^6/uL (3.5-6.1); RED CELL DISTRIBUTION WIDTH 15.2 % (11.5-14.5); WHITE BLOOD COUNT 11.4 10^3/ul (4.5-11.0)
[2017-03-16] MEDS: Budesonide 0.5 mg/2 ml Inhal Susp UD IH SCH ×2 (07:39→22:17)
[2017-03-16 08:01] LABS: ALB/GLOB RATIO 0.6 (1.1-1.8); ALBUMIN 2.6 g/dL (3.0-4.8); ALT/SGPT 42 U/L (7-56); AST/SGOT 66 U/L (17-59); BLOOD UREA NITROGEN 27 mg/dL (7-21); CALCIUM 8.1 mg/dL (8.4-10.5); GFR AFRICAN-AMERICAN > 60; GFR NON-AFRICAN AMERICAN > 60
[2017-03-16] MEDS: Insulin Reg-HIGH-Coverage SC SCH ×4 (08:20→22:00)
--- NOTE | 2017-03-16 08:27 | PN ---
DATE: 03/16/2017 SUBJECTIVE: Patient remains mildly short of breath. He is in no acute distress. He does remain very weak appearing. OBJECTIVE: VITALS: Temperature is 101.0, pulse 85, respirations 22, blood pressure 121/67. Oxygen saturation on a non-rebreather is 97%. HEENT: Normocephalic, atraumatic. No JVD. CARDIOVASCULAR: Systolic ejection murmur at the lower left sternal border. No S3 gallop. LUNGS: Crackles noted at the right lower lobe. Scattered loose rhonchi. No wheezing. EXTREMITIES: No clubbing, cyanosis, or edema. Calves are nontender to palpation. GI: Abdomen is soft, nontender, and nondistended. Bowel sounds are positive. SKIN: Positive right heel cellulitis. NEUROLOGIC: Limited at the present time. IMPRESSION: 1. Right lower lobe pneumonia. 2. Acute bronchospasm. 3. Oxygen desaturation. 4. Right heel cellulitis. 5. Multiple electrolyte abnormalities. 6. Anemia. PLAN: The patient remains mildly short of breath this morning. He is in no acute distress. He does remain very weak appearing. I did discus the case with the night nurse at length. The night nurse stated that the patient is not doing well overall. On physical exam, the patient remains in mild bronchospasm. I will continue the current nebulizer treatments and inhaled steroids for now. I will also continue with the aspiration precautions. The patient remains on antibiotic therapy - as per Infectious Disease. Input by Dr. Garcia is noted. The patient remains critically ill with overall poor prognosis. All are aware. I will discuss the above with Dr. Davidson this morning. Berny Valdivia MD KAREN
--- NOTE | 2017-03-16 09:03 | PN ---
DATE: AUBRIE RAY. Berny Valdivia MD
[2017-03-16] MEDS ORDERED: Barium Sulfate Susp 2.1% w/v, 2.0% w/w 450 mL Bottle PO ONE (10:43)
[2017-03-16] MEDS: Collagenase 250 Units/gm Ointment(30 gm) TOP SCH (10:54)
[2017-03-16] MEDS: Divalproex 125 mg EC Sprinkle Cap PO SCH (11:00)
--- NOTE | 2017-03-16 11:34 | CP.PCM.PN ---
<Irene Arellano - Last Filed: 03/16/17 11:57> Subjective - Date & Time of Evaluation Date of Evaluation: 03/16/17 Time of Evaluation: 11:34 - Subjective Subjective: 81 year old male seen at bedside with attending Dr. Lewis for deep tissue injury of the right foot with posterior heel ulcer and multiple stage one pressure ulcers to the left foot. Patient is nonverbal during examination. Per nursing, no acute overnight events and no new complaints about lower extremities. Nurse denies any episodes of N/V. Pt noted to be febrile yesterday evening with Tmax 102.2 F. Objective - Vital Signs/Intake and Output Vital Signs (last 24 hours): Temp Pulse Resp BP Pulse Ox 100.7 F H 85 22 121/67 97 03/16/17 07:01 03/16/17 06:00 03/16/17 06:00 03/16/17 06:00 03/16/17 06:00 Intake and Output: 03/16/17 03/16/17 06:59 18:59 Intake Total 1300 30 Balance 1300 30 - Medications Medications: Current Medications Acetaminophen (Tylenol 650 Mg Supp) 650 mg RC Q4H PRN PRN Reason: Fever >100.4 F Last Admin: 03/16/17 06:01 Dose: 650 mg Albuterol/Ipratropium (Duoneb 3 Mg/0.5 Mg (3 Ml) Ud) 3 ml IH [id number] [facility] Last Admin: 03/16/17 07:39 Dose: 3 ml Albuterol/Ipratropium (Duoneb 3 Mg/0.5 Mg (3 Ml) Ud) 3 ml IH Q2H PRN PRN Reason: Shortness of Breath Last Admin: 03/14/17 17:55 Dose: 3 ml Bisacodyl (Dulcolax) 10 mg RC DAILY PRN PRN Reason: Constipation Budesonide (Pulmicort Respules) 0.5 mg IH [id number] [facility] Last Admin: 03/16/17 07:39 Dose: 0.5 mg Collagenase (Santyl) 0 gm TOP DAILY [facility] Stop: 03/17/17 23:00 Last Admin: 03/16/17 10:54 Dose: Not Given Divalproex Sodium (Depakote Sprinkles) 125 mg PO DAILY [facility] PRN Reason: Protocol Last Admin: 03/15/17 10:04 Dose: 125 mg Doxycycline Hyclate (Doryx) 100 mg PO Q12 [facility] PRN Reason: Protocol Stop: 03/22/17 16:46 Last Admin: 03/15/17 21:32 Dose: 100 mg Enoxaparin Sodium (Lovenox) 40 mg SC DAILY [facility] PRN Reason: Protocol Last Admin: 03/15/17 10:04 Dose: 40 mg Meropenem (Merrem Iv 1 Gm Premix) 50 mls @ 100 mls/hr IVPB Q12 [facility] PRN Reason: Protocol Stop: 03/22/17 16:35 Last Admin: 03/15/17 21:32 Dose: 100 mls/hr Dextrose (Dextrose 5% In Water 1000 Ml) 1,000 mls @ 75 mls/hr IV .[id number] [facility] Last Admin: 03/16/17 02:07 Dose: 75 mls/hr Potassium Chloride (Potassium Chloride 10 Meq/100 Ml) 10 meq in 100 mls @ 50 mls/hr IVPB Q2 [facility] Stop: 03/16/17 15:59 Insulin Human Regular (Humulin R High) 0 units SC ACHS [facility] PRN Reason: Protocol Last Admin: 03/16/17 08:20 Dose: Not Given - Labs Labs: 03/16/17 05:45 03/16/17 05:45 PT 18.3 SECONDS (9.4-12.5) H 03/10/17 22:05 INR 1.59 (0.93-1.08) H 03/10/17 22:05 APTT 36.7 Seconds (25.1-36.5) H 03/10/17 22:05 - Constitutional Appears: Non-toxic, No Acute Distress - Extremities Exam Additional comments: LE focused exam: Vasc: DP/PT pulses weakly palpable B/L. Skin temperature warm to warm from proximal to distal. CFT < 3 seconds to all digits. No edema noted B/L. Neuro: Epicritic and protective sensation grossly intact B/L. Derm: Deep tissue injury with purple/black discoloration noted to lateral aspect of right foot. Posterior aspect of R heel exhibits ulceration with 70% fibrotic and 30% necrotic tissue - no active drainage, no purulence, no malodor , no fluctuance. No suspicion of abscess formation. Stage one ulceration noted to left medial heel and medial left first metatarsal phalangeal joint. No malodor, purulence, fluctuance, drainage, periwound erythema or other clinical signs of infection noted to either foot. MSK: Tenderness to palpation of right lateral deep tissue injury. Minimal pain on palpation to left foot ulcerations - Neurological Exam Neurological Exam: Alert - Psychiatric Exam Psychiatric exam: Normal Affect, Normal Mood Assessment and Plan - Assessment and Plan (Free Text) Assessment: 81 year old male seen at bedside for deep tissue injury right foot with posterior heel ulcer and multiple stage one pressure ulcers to left foot Plan: Patient seen and evaluated at bedside with attending Dr. Lewis Febrile with Tmax 102.2 yesterday afternoon; WBC 11.4 No evidence of DVT DU right ankle (DP) 0.39, DU left ankle (PT) 0.64 Right foot xray: Normal radiographic findings MRI ordered of R foot/heel to r/o OM as cause of fever Would culture taken of right posterior heel ulceration Continue abx per ID - Meropenem DTI and ulcerations dressed with optifoam dressing B/l feet placed in offloading pads No plan for surgical intervention at this time Podiatry will continue to follow while patient is in house <Kim Lewis - Last Filed: 03/17/17 18:06> Objective - Vital Signs/Intake and Output Vital Signs (last 24 hours): Temp Pulse Resp BP Pulse Ox 100.3 F H 85 18 116/62 94 L 03/17/17 12:00 03/17/17 12:00 03/17/17 12:00 03/17/17 12:00 03/17/17 06:00 Intake and Output: 03/17/17 03/17/17 06:59 18:59 Intake Total 120 0 Balance 120 0 - Labs Labs: 03/16/17 05:45 03/16/17 05:45 PT 18.3 SECONDS (9.4-12.5) H 03/10/17 22:05 INR 1.59 (0.93-1.08) H 03/10/17 22:05 APTT 36.7 Seconds (25.1-36.5) H 03/10/17 22:05 Attending/Attestation - Attestation I have personally seen and examined this patient.: Yes I have fully participated in the care of the patient.: Yes I have reviewed all pertinent clinical information, including history, physical exam and plan: Yes
[2017-03-16] MEDS: Enoxaparin 40 mg Syringe SC SCH (11:46)
[2017-03-16] MEDS: Meropenem IV 1 gm in NS 50 ML IVPB SCH ×2 (11:48→22:00)
--- NOTE | 2017-03-16 12:24 | DS ---
HOSPITAL COURSE: I saw him in bed. He is alert. He is contracted. He is not saying anything, his eyes are opened, he does move his hands a couple of inches. MEDICATIONS: He is on Depakote, IV dextrose, Doryx, DuoNeb, Lovenox, Merrem IV, potassium replacement, Pulmicort, Santyl, and Tylenol. PHYSICAL EXAMINATION: VITAL SIGNS: Temperature 101, 85 pulse, 121/67 blood pressure, 22 respirations, 97% O2 saturations and nonrebreather. His temperature before this morning was 97.6. HEENT: Head is atraumatic, normocephalic. HEART: Regular rate. LUNGS: Decreased breath sounds. ABDOMEN: Soft. EXTREMITIES: He is contracted x4 with a bad foot. There is no surgical intervention at this time as per Surgery and Podiatry. LABORATORY DATA: WBC 11.4, hematocrit 9.8, and platelets . Sodium 140, potassium 3.2 we replaced the potassium, BUN 27, creatinine 0.7, GFR is greater than 60, sugar is 142, total bilirubin is 0.5, AST is 66, ALT is 42, and alkaline phosphatase is 92. ASSESSMENT AND PLAN: He has multiple doctors seeing him, Pulmonary, Infectious Disease, Renal, and Podiatry. There is no surgical plan for him. He has multiple issues. He has dementia, DVT, hypertension, he is bedridden, severe sepsis, right foot cellulitis, right pneumonia, acute kidney injury, and high sodium, but he can do this I believe back sodium has been now normal at 148, his potassium is low, but we replaced it with K-riders. We will find out how more weeks he needs IV fluid and IV antibiotics as per Infectious Disease and hopefully, he will be discharged and back to subacute rehab since there is no surgery. Gerry Davidson DO MTDD
--- NOTE | 2017-03-16 12:40 | CT ---
PROCEDURE: CT Abdomen and Pelvis without intravenous contrast HISTORY: fevers r/o abscess COMPARISON: None. TECHNIQUE: Without contrast.. Contrast Dose: Radiation dose: Total exam DLP = 706 mGy-cm. This CT exam was performed using one or more of the following dose reduction techniques: Automated exposure control, adjustment of the mA and/or kV according to patient size, and/or use of iterative reconstruction technique. FINDINGS: LOWER THORAX: There is dense consolidation at the right lung base with air bronchograms consistent with pneumonia. There is elevation of the left hemidiaphragm with a small effusion LIVER: Unremarkable. No gross lesion or ductal dilatation. GALLBLADDER AND BILE DUCTS: Unremarkable. PANCREAS: Unremarkable. No gross lesion or ductal dilatation. SPLEEN: Unremarkable. ADRENALS: Unremarkable. No mass. KIDNEYS AND URETERS: Unremarkable. No hydronephrosis. No solid mass. VASCULATURE: Unremarkable. No aortic aneurysm. Caval filter BOWEL: Unremarkable. No obstruction. No gross mural thickening. There is severe constipation with fecal impaction APPENDIX: Unremarkable. Normal appendix. PERITONEUM: Unremarkable. No free fluid. No free air. LYMPH NODES: Unremarkable. No enlarged lymph nodes. BLADDER: Unremarkable. REPRODUCTIVE: Unremarkable. BONES: No acute fracture. OTHER FINDINGS: None. IMPRESSION: Probable right lower lobe pneumonia. Constipation with fecal impaction. No evidence of intra-abdominal abscess or inflammation
--- NOTE | 2017-03-16 15:23 | CP.PCM.PN ---
Subjective - Date & Time of Evaluation Date of Evaluation: 03/16/17 Time of Evaluation: 15:23 - Subjective Subjective: Follow up Nephrology Consultation Note Assessment: critical Acute Kidney Injury (N17.9) likely due to pre-renal dehydration state Severe Hypernatremia Sepsis with pneumonia Severe Dementia Hypokalemia Anemia Plan No acute need for renal replacement therapy at this time. No ACEI/ARB due to RADHA and low BP. maintain hemodynamics stable Monitor Input/Output, daily weights and renal function with basic metabolic panel continue with IVF as D5W supplement electrolytes as needed overall prognosis poor. consider palliative care Avoid nephrotoxins/NSAIDs Glycemic control Further work up for as per primary team Thanks for allowing me to participate in care of your patient. Will follow patient with you. Please call if any Qs Dr Broderick [place] Office: [phone] Subjective: Noted events overnight. Patients unable to provide ROS Physical Examination: General Appearance: Comfortable, in no acute respiratory distress, on O2 via NRB. cachexic with muscle wasting Vitals reviewed and noted as below Head; Atraumatic, normocephalic Neck; supple no lymphadenopathy, no thyromegaly or bruit Lungs: Normal respiratory rate/effort. Breath sounds decreased at rt base with crackles Heart: Normal rate. s1s2 normal. No rub or gallop. Extremities: no edema. No varicose veins Neurological: Patient is severly demented and non communicative Skin: Warm and dry. Normal turgor. No rash. Palpitation: Normal elasticity for age Abdomen: Abdomen is soft. Bowel sounds +. There is no abdominal tenderness, no guarding/rigidity no organomegaly Psych: unable MSK: no joint tenderness or swelling. Digits and nails normal, no deformity : kidney or bladder not palpable Labs/imaging reviewed. Past medical history, past surgical history, family history, social history, allergy reviewed and noted as below Family hx: no hx of CKD. Rest non-contributory Objective - Vital Signs/Intake and Output Vital Signs (last 24 hours): Temp Pulse Resp BP Pulse Ox 101 F H 93 H 21 131/74 97 03/16/17 13:53 03/16/17 12:00 03/16/17 12:00 03/16/17 12:00 03/16/17 06:00 Intake and Output: 03/16/17 03/16/17 06:59 18:59 Intake Total 1300 30 Balance 1300 30 - Medications Medications: Current Medications Acetaminophen (Tylenol 650 Mg Supp) 650 mg RC Q4H PRN PRN Reason: Fever >100.4 F Last Admin: 03/16/17 13:53 Dose: 650 mg Albuterol/Ipratropium (Duoneb 3 Mg/0.5 Mg (3 Ml) Ud) 3 ml IH [id number] [facility] Last Admin: 03/16/17 13:59 Dose: 3 ml Albuterol/Ipratropium (Duoneb 3 Mg/0.5 Mg (3 Ml) Ud) 3 ml IH Q2H PRN PRN Reason: Shortness of Breath Last Admin: 03/14/17 17:55 Dose: 3 ml Bisacodyl (Dulcolax) 10 mg RC DAILY PRN PRN Reason: Constipation Budesonide (Pulmicort Respules) 0.5 mg IH [id number] [facility] Last Admin: 03/16/17 07:39 Dose: 0.5 mg Collagenase (Santyl) 0 gm TOP DAILY [facility] Stop: 03/17/17 23:00 Last Admin: 03/16/17 10:54 Dose: Not Given Divalproex Sodium (Depakote Sprinkles) 125 mg PO DAILY [facility] PRN Reason: Protocol Last Admin: 03/16/17 11:00 Dose: Not Given Doxycycline Hyclate (Doryx) 100 mg PO Q12 [facility] PRN Reason: Protocol Stop: 03/22/17 16:46 Last Admin: 03/16/17 11:00 Dose: Not Given Enoxaparin Sodium (Lovenox) 40 mg SC DAILY [facility] PRN Reason: Protocol Last Admin: 03/16/17 11:46 Dose: 40 mg Meropenem (Merrem Iv 1 Gm Premix) 50 mls @ 100 mls/hr IVPB Q12 [facility] PRN Reason: Protocol Stop: 03/22/17 16:35 Last Admin: 03/16/17 11:48 Dose: 100 mls/hr Dextrose (Dextrose 5% In Water 1000 Ml) 1,000 mls @ 75 mls/hr IV .[id number] [facility] Last Admin: 03/16/17 02:07 Dose: 75 mls/hr Potassium Chloride (Potassium Chloride 10 Meq/100 Ml) 10 meq in 100 mls @ 50 mls/hr IVPB Q2 [facility] Stop: 03/16/17 15:59 Last Admin: 03/16/17 14:17 Dose: Not Given Insulin Human Regular (Humulin R High) 0 units SC ACHS [facility] PRN Reason: Protocol Last Admin: 03/16/17 13:51 Dose: 2 units - Labs Labs: 03/16/17 05:45 03/16/17 05:45 PT 18.3 SECONDS (9.4-12.5) H 03/10/17 22:05 INR 1.59 (0.93-1.08) H 03/10/17 22:05 APTT 36.7 Seconds (25.1-36.5) H 03/10/17 22:05
--- NOTE | 2017-03-16 21:25 | CP.PCM.PN ---
Subjective - Date & Time of Evaluation Date of Evaluation: 03/16/17 Time of Evaluation: 21:23 - Subjective Subjective: 70's 100% NRM--was 90-97%. got duoneb 122/73 Objective - Vital Signs/Intake and Output Vital Signs (last 24 hours): Temp Pulse Resp BP Pulse Ox 102.9 F H 94 H 22 140/72 90 L 03/16/17 18:00 03/16/17 18:00 03/16/17 18:00 03/16/17 18:00 03/16/17 18:00 Intake and Output: 03/16/17 03/17/17 18:59 06:59 Intake Total 30 Balance 30 - Medications Medications: Current Medications Acetaminophen (Tylenol 650 Mg Supp) 650 mg RC Q4H PRN PRN Reason: Fever >100.4 F Last Admin: 03/16/17 13:53 Dose: 650 mg Albuterol/Ipratropium (Duoneb 3 Mg/0.5 Mg (3 Ml) Ud) 3 ml IH [id number] [facility] Last Admin: 03/16/17 13:59 Dose: 3 ml Albuterol/Ipratropium (Duoneb 3 Mg/0.5 Mg (3 Ml) Ud) 3 ml IH Q2H PRN PRN Reason: Shortness of Breath Last Admin: 03/14/17 17:55 Dose: 3 ml Bisacodyl (Dulcolax) 10 mg RC DAILY PRN PRN Reason: Constipation Budesonide (Pulmicort Respules) 0.5 mg IH [id number] [facility] Last Admin: 03/16/17 07:39 Dose: 0.5 mg Collagenase (Santyl) 0 gm TOP DAILY [facility] Stop: 03/17/17 23:00 Last Admin: 03/16/17 10:54 Dose: Not Given Divalproex Sodium (Depakote Sprinkles) 125 mg PO DAILY [facility] PRN Reason: Protocol Last Admin: 03/16/17 11:00 Dose: Not Given Doxycycline Hyclate (Doryx) 100 mg PO Q12 [facility] PRN Reason: Protocol Stop: 03/22/17 16:46 Last Admin: 03/16/17 11:00 Dose: Not Given Enoxaparin Sodium (Lovenox) 40 mg SC DAILY [facility] PRN Reason: Protocol Last Admin: 03/16/17 11:46 Dose: 40 mg Meropenem (Merrem Iv 1 Gm Premix) 50 mls @ 100 mls/hr IVPB Q12 [facility] PRN Reason: Protocol Stop: 03/22/17 16:35 Last Admin: 03/16/17 11:48 Dose: 100 mls/hr Dextrose (Dextrose 5% In Water 1000 Ml) 1,000 mls @ 75 mls/hr IV .[id number] [facility] Last Admin: 03/16/17 02:07 Dose: 75 mls/hr Insulin Human Regular (Humulin R High) 0 units SC ACHS [facility] PRN Reason: Protocol Last Admin: 03/16/17 17:14 Dose: Not Given - Labs Labs: 03/16/17 05:45 03/16/17 05:45 PT 18.3 SECONDS (9.4-12.5) H 03/10/17 22:05 INR 1.59 (0.93-1.08) H 03/10/17 22:05 APTT 36.7 Seconds (25.1-36.5) H 03/10/17 22:05
--- NOTE | 2017-03-17 01:25 | PN ---
DATE: 03/16/2017 SUBJECTIVE: The patient is in bed, in no acute distress, nontoxic, no fevers. PHYSICAL EXAMINATION: VITAL SIGNS: On exam, there is fevers of 102.9. Patient is contracted and blood pressure is 140/70, respiratory rate 22, heart rate of 94, patient has 90% saturation. HEENT: Unremarkable. NECK: Supple. LUNGS: Have decreased breath sounds. HEART: Normal S1 and S2. ABDOMEN: Soft. LABORATORY DATA: Reveals a white count of 11,400, hemoglobin of 9, platelets of 324. Patein has a sed rate of 121. BUN of 27 and creatinine of 0.7. Procalcitonin is 1.13. Urinalysis is noted. Microbiology reveals blood cultures and urine cultures are negative. Patient had a CAT scan of the abdomen and pelvic which shows no evidence of intraabdominal abscess or inflammation. In the chest, there is dense consolidation of right base for air bronchogram consistent with pneumonia in the left diaphragm with a small effusion. Dr. Hurtado's note is reviewed. Patient's c-reactive protein is greater than 15. ASSESSMENT AND PLAN: This is an 81-year-old male seen early this morning, examined the patient with Dr. Lewis who does not feel the patient has surgical foot. Patient with dementia, deep venous thrombosis, gastrointestinal bleeding, anxiety, hypertension, bedridden, severe sepsis, right-sided foot cellulitis and gangrene, acute kidney injury and right lung pneumonia, on meropenem and doxycycline. Continues to have fevers and a negative CAT scan of abdomen and pelvis. There is an effusion, although is small, must rule out empyema. We will have pulmonary's input regarding that as a possible cause of the fever, and patient has an INR of 1.59 and slightly developing newer deep venous thrombosis. A negative CAT scan of the abdomen and pelvis. There is healthcare-associated pneumonia with sepsis, on meropenem and doxycycline. Continues with the fevers with negative barclay cultures, right lung pneumonia with severe sepsis and acute kidney injury and foot cellulitis. Patient is scheduled. We will order repeat blood cultures and follow with you. Patient is scheduled for MRA of the foot and will make further recommendations. Todd Garcia MD
[2017-03-17] MEDS: Albuterol-Ipratrop 3 mg / 0.5 (3 ml) UD IH SCH ×3 (01:28→15:59)
[2017-03-17 07:49] VITALS: O2SAT 94
--- NOTE | 2017-03-17 09:01 | RAD ---
HISTORY: hypoxia COMPARISON: 03/13/2017 FINDINGS: LUNGS: There is interval significant improvement in right lower lobe airspace disease. There is persistent left retrocardiac opacity. PLEURA: No change in small pleural effusions, worse on the left. No pneumothorax apparent. CARDIOVASCULAR: Normal. OSSEOUS STRUCTURES: No significant abnormalities. VISUALIZED UPPER ABDOMEN: Normal. OTHER FINDINGS: None. IMPRESSION: 1. Interval significant improvement in right lower lobe pneumonia. Residual small pleural effusion. 2. Persistent left lower lobe pneumonia/pleural effusion. Follow-up is advised.
[2017-03-17] MEDS: Budesonide 0.5 mg/2 ml Inhal Susp UD IH SCH (09:49)
[2017-03-17] MEDS ORDERED: MethylPREDNISolone 40 mg Vial IVP SCH (10:00)
--- NOTE | 2017-03-17 10:24 | CP.PCM.CON ---
History of Present Illness - History of Present Illness History of Present Illness: Palliative consult requested by DR Shantelle Rankin:Goals of care 81 year old male with history of dementia and HTN who was sent for [facility] with pain and swelling of right heel . Chest x ray showed infiltrate right lung base. CT showed small effusion,possible empyema. Kaba cultures negative.Cellulitis vs osteomyeolitis of right foot. PMHx: DVT, GI bleed,dementia,HTN, contracture of all extremities, right heel cellulitis. Social History: Non smoker, no alcohol or drug use. Resident to [facility]. Family History: Non contributory Advance Care Planning: The patient is DNR/DNI. Tn priscila Daneijeoma Hurt is POA. Review of Systems: As per HPI, patient is demented/non verbal Past Patient History - Infectious Disease Hx of Infectious Diseases: None - Tetanus Immunizations Tetanus Immunization: Unknown - Past Social History Smoking Status: Unknown If Ever Smoked - CARDIAC Hx Hypertension: Yes - PULMONARY Hx Tuberculosis: No - NEUROLOGICAL Hx Seizures: No - HEMATOLOGICAL/ONCOLOGICAL Hx Cancer: No - MUSCULOSKELETAL/RHEUMATOLOGICAL Hx Musculoskeletal Disorders: Yes Hx Degenerative Joint Disease: Yes Hx Falls: (unknown) - GASTROINTESTINAL Hx Gastroesophageal Reflux: Yes - GENITOURINARY/GYNECOLOGICAL Hx Sexually Transmitted Disorders: No - PSYCHIATRIC Hx Depression: No Hx Substance Use: No - ANESTHESIA Hx Anesthesia: Yes Hx Anesthesia Reactions: No Hx Malignant Hyperthermia: No Meds Allergies/Adverse Reactions: Allergies Allergy/AdvReac Type Severity Reaction Status Date / Time No Known Allergies Allergy Verified 01/30/13 19:34 - Medications Medications: Current Medications Acetaminophen (Tylenol 650 Mg Supp) 650 mg RC Q4H PRN PRN Reason: Fever >100.4 F Last Admin: 03/17/17 06:25 Dose: 650 mg Albuterol/Ipratropium (Duoneb 3 Mg/0.5 Mg (3 Ml) Ud) 3 ml IH [id number] [facility] Last Admin: 03/17/17 09:49 Dose: 3 ml Albuterol/Ipratropium (Duoneb 3 Mg/0.5 Mg (3 Ml) Ud) 3 ml IH Q2H PRN PRN Reason: Shortness of Breath Last Admin: 03/14/17 17:55 Dose: 3 ml Bisacodyl (Dulcolax) 10 mg RC DAILY PRN PRN Reason: Constipation Budesonide (Pulmicort Respules) 0.5 mg IH [id number] [facility] Last Admin: 03/17/17 09:49 Dose: 0.5 mg Collagenase (Santyl) 0 gm TOP DAILY [facility] Stop: 03/17/17 23:00 Last Admin: 03/16/17 10:54 Dose: Not Given Divalproex Sodium (Depakote Sprinkles) 125 mg PO DAILY [facility] PRN Reason: Protocol Last Admin: 03/16/17 11:00 Dose: Not Given Doxycycline Hyclate (Doryx) 100 mg PO Q12 [facility] PRN Reason: Protocol Stop: 03/22/17 16:46 Last Admin: 03/16/17 22:00 Dose: 100 mg Enoxaparin Sodium (Lovenox) 40 mg SC DAILY [facility] PRN Reason: Protocol Last Admin: 03/16/17 11:46 Dose: 40 mg Meropenem (Merrem Iv 1 Gm Premix) 50 mls @ 100 mls/hr IVPB Q12 [facility] PRN Reason: Protocol Stop: 03/22/17 16:35 Last Admin: 03/16/17 22:00 Dose: 100 mls/hr Dextrose (Dextrose 5% In Water 1000 Ml) 1,000 mls @ 75 mls/hr IV .[id number] [facility] Last Admin: 03/17/17 06:25 Dose: 75 mls/hr Potassium Chloride (Potassium Chloride 10 Meq/100 Ml) 10 meq in 100 mls @ 50 mls/hr IVPB Q2H [facility] Stop: 03/17/17 12:29 Insulin Human Regular (Humulin R High) 0 units SC ACHS [facility] PRN Reason: Protocol Last Admin: 03/16/17 22:00 Dose: Not Given Methylprednisolone (Solu-Medrol) 30 mg IVP Q12 [facility] Physical Exam - Constitutional Appears: Cachectic, Chronically Ill - Head Exam Head Exam: NORMAL INSPECTION - Eye Exam Eye Exam: Normal appearance, PERRL - ENT Exam ENT Exam: Mucous Membranes Moist, Normal Oropharynx - Respiratory Exam Respiratory Exam: Decreased Breath Sounds, Rhonchi, Wheezes - Cardiovascular Exam Cardiovascular Exam: Tachycardia, +S1, +S2 - GI/Abdominal Exam GI & Abdominal Exam: Hypoactive Bowel Sounds, Soft - Extremities Exam Extremities exam: Positive for: pedal pulses present Additional comments: dressing both heeal - Neurological Exam Neurological exam: Altered - Skin Skin Exam: Pallor Additional comments: ulcer left hip, right heel - Additional Findings Additional findings: Palliative performance scale rating 30% Results - Vital Signs Recent Vital Signs: Last Vital Signs Temp 100.8 F H 03/17/17 06:25 Pulse 98 H 03/17/17 06:00 Resp 20 03/17/17 06:00 BP 130/78 03/17/17 06:00 Pulse Ox 94 L 03/17/17 06:00 - Labs Result Diagrams: 03/16/17 05:45 03/16/17 05:45 Labs: Laboratory Results - last 24 hr 03/16/17 03/16/17 03/16/17 11:30 16:24 21:46 POC Glucose (mg/dL) 161 H 144 H 136 H 03/17/17 07:30 POC Glucose (mg/dL) 187 H Assessment & Plan - Assessment and Plan (Free Text) Assessment: 81 year old resident of [facility] with history of dementia, GI bleed, DVT who is admitted with pneumonia, sepsis, right heel cellulitis vs osteo, hypernatemia. The patient is bed bound, contracted, non verbal. I spoke with patients priscila Childs via phone. Medical situation and goals of care discussed. Son understands that over all prognosis is poor. Hpsice care explained . Questions answered.Son wants to speak with rest of family before making this decision. Son spoke with family. All are in agreement with hospice care. Son also spoke with [facility] home care liaison. Hospice services explained again. Consents signed. Time spent in discussion with son regarding goals of care, hospice services and end of life counseling, 45 minutes Plan: Discussed with Dr Shantelle Davidson who is in agreement with plan, Hospice evaluation for [facility] services. Goals of care End of life counseling
[2017-03-17] MEDS: Insulin Reg-HIGH-Coverage SC SCH (10:30)
--- NOTE | 2017-03-17 10:35 | PN ---
DATE: SUBJECTIVE: Erickson is in very bad condition. He has a very bad right foot cellulitis and gangrene. Podiatry does not feel that they can do surgery on him. He has got dementia and deep vein thrombosis history. He has severe sepsis. He has got temperature. He has got pneumonia. He is on lots of IV antibiotics, lots of doctors are seeing him. He is bed-bound, contracted. I do not see him improving at this point. I will call palliative care to possibly get him on hospice. PHYSICAL EXAMINATION: VITAL SIGNS: He has 100.9 and 100.8 temperatures, 98 pulse, 130/78 blood pressure, 20 respiratory rate, 94% O2 sat on nonrebreather. HEENT: Head is atraumatic, normocephalic. HEART: Regular rate. LUNGS: Decreased breath sounds bilaterally. ABDOMEN: Soft and scaphoid. EXTREMITIES: Contracted. He has got bad right foot. Podiatry wants to do surgery on him. LABORATORY DATA: He has 148 sodium, potassium 3.2, I replaced his potassium, BUN 27, creatinine 0.7, last blood sugar was 187, calcium is 8.1, total bilirubin is 0.5, AST is 66, ALT is 42, and alkaline phosphatase is 92. His white count is 11.4, hemoglobin is 9.8, hematocrit is 32, and platelets are 324. He also had a CAT scan of the abdomen and pelvis, which showed some constipation and little pneumonia, but no abscess. MEDICATIONS: He is on Depakote, dextrose, Doryx, Dulcolax, DuoNebs, Insulin, Lovenox, Merrem, Pulmicort, Santyl, Solu-Medrol, and Tylenol. ASSESSMENT AND PLAN: We will possibly do palliative care at his longterm. I will reach out the family. He is very much septic, bad right foot with gangrene, pneumonia, and acute kidney injury. Gerry Davidson DO MTDDivya
[2017-03-17] MEDS: Divalproex 125 mg EC Sprinkle Cap PO SCH (11:26)
[2017-03-17] MEDS: Enoxaparin 40 mg Syringe SC SCH (11:29)
--- NOTE | 2017-03-17 12:20 | PN ---
DATE: 03/17/2017 PULMONARY NOTE SUBJECTIVE: The patient is certainly more lethargic this morning. He remains mildly short of breath. PHYSICAL EXAMINATION: VITAL SIGNS: Temperature is 100.8, pulse 91, respirations 22, blood pressure 122/73. Oxygen saturation on a non-rebreather is 85%. HEENT: Normocephalic, atraumatic. No JVD. CARDIOVASCULAR: Systolic ejection murmur at the lower left sternal border. No S3 gallop. LUNGS: Crackles noted at the right lower lobe. Scattered bilateral loose rhonchi. No wheezing. EXTREMITIES: No clubbing, cyanosis or edema. Calves are nontender to palpation. GI: Abdomen is soft, nontender and nondistended. Bowel sounds are positive. SKIN: Positive right heel cellulitis. NEUROLOGIC: Limited at the present time. PERTINENT LABORATORY DATA: Chest x-ray was done late last night, and reviewed. It is a poor rotated film. The right lower lobe infiltrate appears less dense. It is difficult to adequately assess the left base. IMPRESSION: 1. Right lower lobe pneumonia. 2. Acute bronchospasm. 3. Oxygen desaturation. 4. Right heel cellulitis. 5. Multiple electrolyte abnormalities. 6. Anemia. PLAN: The patient is certainly more lethargic this morning. He remains mildly short of breath. I discussed the case with the night nurse at length. The night nurse stated that the patient is doing poorly overall. Oxygen desaturation is noted. I will add nasal cannula to the non-rebreather mask. I did review the chest x-ray as above. The chest x-ray remains with a right lower lobe infiltrate. However, the infiltrate looks less dense. The patient continues to spike temperatures. Input by Dr. Garcia (Infectious Disease) is noted. The patient also remains in mild bronchospasm. I will continue the current nebulizer treatments and inhaled steroids. I will also try adding low dose intravenous steroids. The patient remains critically ill with very poor overall prognosis. I will discuss the above with Dr. Davidson this morning. Berny Valdivia MD AKREN
[2017-03-17 13:04] VITALS: BP 116/62; PULSE 85; RESP 18; TEMP 100.3
--- NOTE | 2017-03-17 16:07 | CP.PCM.PN ---
Subjective - Date & Time of Evaluation Date of Evaluation: 03/17/17 Time of Evaluation: 16:06 - Subjective Subjective: Follow up Nephrology Consultation Note Assessment: critical Acute Kidney Injury (N17.9) likely due to pre-renal dehydration state Severe Hypernatremia Sepsis with pneumonia Severe Dementia Hypokalemia Anemia Plan No acute need for renal replacement therapy at this time. No ACEI/ARB due to RADHA and low BP. maintain hemodynamics stable Monitor Input/Output, daily weights and renal function with basic metabolic panel continue with IVF as D5W supplement electrolytes as needed overall prognosis poor. appreciate palliative care. likely plan for hospice Avoid nephrotoxins/NSAIDs Glycemic control Further work up for as per primary team Thanks for allowing me to participate in care of your patient. Will sign off. Please call if any Qs Dr Broderick [place] Office: [phone] Subjective: Noted events overnight. Patients unable to provide ROS Physical Examination: General Appearance: Comfortable, in no acute respiratory distress, on O2 via NRB. cachexic with muscle wasting Vitals reviewed and noted as below Head; Atraumatic, normocephalic Neck; supple no lymphadenopathy, no thyromegaly or bruit Lungs: Normal respiratory rate/effort. Breath sounds decreased at rt base with crackles Heart: Normal rate. s1s2 normal. No rub or gallop. Extremities: no edema. No varicose veins Neurological: Patient is severly demented and non communicative Skin: Warm and dry. Normal turgor. No rash. Palpitation: Normal elasticity for age Abdomen: Abdomen is soft. Bowel sounds +. There is no abdominal tenderness, no guarding/rigidity no organomegaly Psych: unable MSK: no joint tenderness or swelling. Digits and nails normal, no deformity : kidney or bladder not palpable Labs/imaging reviewed. Past medical history, past surgical history, family history, social history, allergy reviewed and noted as below Family hx: no hx of CKD. Rest non-contributory Objective - Vital Signs/Intake and Output Vital Signs (last 24 hours): Temp Pulse Resp BP Pulse Ox 100.3 F H 85 18 116/62 94 L 03/17/17 12:00 03/17/17 12:00 03/17/17 12:00 03/17/17 12:00 03/17/17 06:00 Intake and Output: 03/17/17 03/17/17 06:59 18:59 Intake Total 120 0 Balance 120 0 - Medications Medications: Current Medications Acetaminophen (Tylenol 650 Mg Supp) 650 mg RC Q4H PRN PRN Reason: Fever >100.4 F Last Admin: 03/17/17 06:25 Dose: 650 mg Albuterol/Ipratropium (Duoneb 3 Mg/0.5 Mg (3 Ml) Ud) 3 ml IH [id number] ARIEL Last Admin: 03/17/17 15:59 Dose: 3 ml Albuterol/Ipratropium (Duoneb 3 Mg/0.5 Mg (3 Ml) Ud) 3 ml IH Q2H PRN PRN Reason: Shortness of Breath Last Admin: 03/14/17 17:55 Dose: 3 ml Bisacodyl (Dulcolax) 10 mg RC DAILY PRN PRN Reason: Constipation Collagenase (Santyl) 0 gm TOP DAILY ARIEL Stop: 03/17/17 23:00 Last Admin: 03/16/17 10:54 Dose: Not Given - Labs Labs: 03/16/17 05:45 03/16/17 05:45 PT 18.3 SECONDS (9.4-12.5) H 03/10/17 22:05 INR 1.59 (0.93-1.08) H 03/10/17 22:05 APTT 36.7 Seconds (25.1-36.5) H 03/10/17 22:05
== END 2017-03-17 17:04 | disposition hospice, inpatient (51) | DRG 871 ==
LOC: ED 21:43 → ERH 23:12 → 3RSO 03-11 01:51
PROVIDERS: ADMIT Family Medicine; ATTEND Family Medicine
DX: A41.9 Sepsis, unspecified organism (principal); J18.9 Pneumonia, unspecified organism; N17.9 Acute kidney failure, unspecified; E87.0 Hyperosmolality and hypernatremia; E11.52 Type 2 diabetes mellitus with diabetic peripheral angiopathy with gangrene; L03.115 Cellulitis of right lower limb; E11.621 Type 2 diabetes mellitus with foot ulcer; L97.428 Non-pressure chronic ulcer of left heel and midfoot with other specified severity; R64 Cachexia; R65.20 Severe sepsis without septic shock; L89.621 Pressure ulcer of left heel, stage 1; E86.0 Dehydration; D64.9 Anemia, unspecified; E87.6 Hypokalemia; K21.9 Gastro-esophageal reflux disease without esophagitis; F41.9 Anxiety disorder, unspecified; F03.90 Unspecified dementia, unspecified severity, without behavioral disturbance, psychotic disturbance, mood disturbance, and anxiety; I10 Essential (primary) hypertension; R09.02 Hypoxemia; Z66 Do not resuscitate; Z51.5 Encounter for palliative care; Z68.21 Body mass index [BMI] 21.0-21.9, adult; Z86.718 Personal history of other venous thrombosis and embolism; Z74.01 Bed confinement status

== ENCOUNTER 2017-03-17 16:17 | Inpatient (IN) | payer OTHER ==
[2017-03-17] MEDS ORDERED: Morphine PCA 1 mg/ml (25ml) 25 ML IV PRN (17:19)
[2017-03-17] MEDS ORDERED: Morphine 2 mg/ml ISec IVP STA (17:23)
--- NOTE | 2017-03-19 14:33 | PN ---
DATE: SUBJECTIVE: I see him resting in bed, in no acute distress. His breathing is shallow. His number is [id number]. He is on hospice. PHYSICAL EXAMINATION: GENERAL: He is contracted. VITAL SIGNS: He has 100 temperature, 85 pulse, 136/72 blood pressure, 20 respiratory rate, and 82% O2 saturations on 5 L of nasal cannula. HEART: Regular rate. LUNGS: Decreased breath sounds. EXTREMITIES: All 4 extremities are contracted. He has got a bad foot. No medications, but some p.r.n. Ativan, and Tylenol. Last blood sugar was We will keep him as comfortable and pain free as possible on hospice. Gerry Davidson DO MTDD
[2017-03-19 23:13] VITALS: RESP 17
[2017-03-20 05:42] VITALS: BP 133/76; PULSE 85; TEMP 99.1; O2SAT 91
--- NOTE | 2017-03-20 08:41 | PN ---
DATE: 03/18/2017 SUBJECTIVE: He is now on hospice. He is resting in bed. He is not awake at this time. MEDICATIONS: He is on Ativan, Transderm Scop, and Tylenol. PHYSICAL EXAMINATION: VITAL SIGNS: A 98.7 temperature, 80 pulse, 109/62 blood pressure, 20 respiratory rate, 90% O2 saturation on nasal cannula. HEART: Regular rate. LUNGS: Decreased breath sounds. LABORATORY DATA: There is no more labs to be done. ASSESSMENT AND PLAN: We will keep him peaceful and as pain free and comfortable as possible. He is now on hospice and he has had end-stage sepsis. Gerry Davidson DO
--- NOTE | 2017-03-20 08:45 | PN ---
DATE: SUBJECTIVE: He is in bed, in no apparent distress. He is not alert at this time. He is on hospice. He is a DNR/DNI. PHYSICAL EXAMINATION: VITAL SIGNS: He has 99.1 temperature, 85 pulse, 133/76 blood pressure, 17 respiratory rate, 91% O2 sat on nasal cannula. HEART: Regular rate. LUNGS: Decreased breath sounds but clear. MEDICATIONS: He is only on p.r.n. medication Ativan, Transderm Scop and Tylenol. LABORATORY DATA: Last blood sugar was 177. ASSESSMENT AND PLAN: We will continue with hospice care. He has end-stage right foot infection, acute kidney injury, dementia, right pneumonia, severe sepsis. Gerry Davidson DO
--- NOTE | 2017-03-20 09:19 | CP.PCM.PN ---
Subjective - Date & Time of Evaluation Date of Evaluation: 03/20/17 Time of Evaluation: 09:00 - Subjective Subjective: Less lethargic. No dsypnea or acute findings. Objective - Vital Signs/Intake and Output Vital Signs (last 24 hours): Temp Pulse Resp BP Pulse Ox 99.1 F 85 17 133/76 91 L 03/20/17 05:41 03/20/17 05:41 03/20/17 05:41 03/20/17 05:41 03/20/17 05:41 Intake and Output: 03/20/17 03/20/17 06:59 18:59 Intake Total 0 Balance 0 - Medications Medications: Current Medications Acetaminophen (Tylenol 650 Mg Supp) 650 mg RC Q4H PRN PRN Reason: Fever >100.4 F Last Admin: 03/19/17 10:47 Dose: 650 mg Lorazepam (Ativan) 1 mg IM Q6H PRN; Protocol PRN Reason: Restlessness Scopolamine (Transderm-Scop) 1 patch TD Q3D ARIEL Last Admin: 03/17/17 20:05 Dose: 1 patch - Constitutional Appears: Cachectic, Chronically Ill - Eye Exam Eye Exam: Normal appearance, PERRL - Neck Exam Neck Exam: Meningismus - Respiratory Exam Respiratory Exam: Decreased Breath Sounds, Rhonchi - Cardiovascular Exam Cardiovascular Exam: REGULAR RHYTHM, +S1, +S2 - GI/Abdominal Exam GI & Abdominal Exam: Soft, Hypoactive Bowel Sounds - Extremities Exam Extremities Exam: Pedal Edema Additional comments: contractures - Neurological Exam Neurological Exam: Altered - Skin Skin Exam: Dry, Pallor Additional comments: ulcer right heel & left hip Assessment and Plan - Assessment and Plan (Free Text) Assessment: 81 esequiel old male resident of [facility] who has history of cellulitis, dementia, CKD,anemia, severe sepsis and dementia who was transitioned to hospice care for pain and symptom management. Patient appears comfortable,stable. Continue symptom management as needed. Would send back to [place] under [facility]. Plan: Continue hospice care at [facility].
== END 2017-03-20 11:27 | disposition hospice, inpatient (51) | DRG 871 ==
LOC: 3RSO 16:17
PROVIDERS: ADMIT Family Medicine; ATTEND Family Medicine
DX: A41.9 Sepsis, unspecified organism (principal); J18.9 Pneumonia, unspecified organism; N17.9 Acute kidney failure, unspecified; Z51.5 Encounter for palliative care; Z66 Do not resuscitate; F03.90 Unspecified dementia, unspecified severity, without behavioral disturbance, psychotic disturbance, mood disturbance, and anxiety; R65.20 Severe sepsis without septic shock; N18.9 Chronic kidney disease, unspecified; D64.9 Anemia, unspecified